=== PATIENT | male | born 1960 | race American Indian/Alaskan Native ===

== ENCOUNTER 2016-11-16 18:50 | Emergency (ER) | payer OTHER ==
[2016-11-16 20:17] LABS: Hematocrit 40.8 % (35.5-45.6); Hemoglobin 13.9 gm/dl (11.8-15.2); Mean Corpuscular HGB Conc 34 % (32-34); Mean Corpuscular Hemoglobin 27 pg (28-32); Mean Corpuscular Volume 80 fl (84-94); Red Blood Count 5.09 M/mm3 (3.65-5.03); Red Cell Distribution Width 14.9 % (13.2-15.2); White Blood Count 6.4 K/mm3 (4.5-11.0)
[2016-11-16 20:22] LABS: Platelet Count 88 K/mm3 (140-440)
[2016-11-16 20:30] LABS: Alanine Aminotransferase 128 units/L (7-56); Albumin 3.2 g/dL (3.9-5); Albumin/Globulin Ratio 1.2 %; Alkaline Phosphatase 343 units/L (35-129); Anion Gap 22 mmol/L; Blood Urea Nitrogen 14 mg/dL (9-20); Calcium 8.1 mg/dL (8.4-10.2); Carbon Dioxide 25 mmol/L (22-30); Chloride 91.1 mmol/L (98-107); Glucose 187 mg/dL (75-100); Lipase 9 units/L (13-60); Potassium 4.1 mmol/L (3.6-5.0); Sodium 134 mmol/L (137-145); Total Protein 5.9 g/dL (6.3-8.2)
[2016-11-16 21:03] LABS: Basophils % (Manual) 0 % (0.0-1.8); Blastocytes % (Manual) 0 %
[2016-11-16 21:07] LABS: Diff Status Complete; Platelet Estimate Consistent w Auto; Target Cells 1+
[2016-11-17 00:04] LABS: Urine Drugs of Abuse Note Disclamer
[2016-11-17 00:17] LABS: Bacteria,Urine 1+ /HPF (Negative); Bilirubin,Urine NEG (Negative); Blood,Urine NEG (Negative); Ketones,Urine NEG (Negative); Leukocyte Esterase,Urine TR (Negative); Mucus,Urine FEW /HPF; Nitrite,Urine POS (Negative)
--- NOTE | 2016-11-17 01:20 | Emergency Department Report ---
HPI - General Chief Complaint: Abdominal Pain Time Seen by Provider: 11/17/16 00:36 - HPI HPI: This is a 56-year-old Afro-Turkish male presents the emergency department with a 2 week history of some upper abdominal pain with some radiation towards his back. He denies any nausea, vomiting but he does have a history of weight loss of about 60 pounds over the past few years despite saying that he is eating regularly. He follows up at [facility] and [place] for primary care and he says that he went there today but was told to come the emergency department for further evaluation. This abdominal pain is a more chronic issue having occurred intermittently over the past 6 months. He denies any constipation, diarrhea, fever. He has not taken anything for symptoms prior to presentation. He does have a history of alcohol abuse but says he has not been drinking much since he "got sick" but he did drink this morning. No recent travel or sick contacts at home. ED Past Medical Hx - Past Medical History Previous Medical History?: Yes Hx Hypertension: Yes Hx Diabetes: Yes - Surgical History Past Surgical History?: No - Social History Smoking Status: Current Every Day Smoker Substance Use Type: Alcohol - Medications Home Medications: Home Medications Medication Instructions Recorded Confirmed Last Taken Type amLODIPine 10 mg DAILY 11/11/15 11/17/16 11/11/15 History glipiZIDE 10 mg PO DAILY 11/11/15 11/17/16 11/11/15 History Ciprofloxacin HCl [Ciprofloxacin 500 mg PO Q12H #14 tab 11/17/16 Unknown Rx TAB] ED Review of Systems ROS: Stated complaint: ABDOMINAL PAIN Other details as noted in HPI Comment: All other systems reviewed and negative Constitutional: denies: chills, fever Eyes: denies: eye pain, eye discharge, vision change ENT: denies: ear pain, throat pain Respiratory: denies: cough, shortness of breath, wheezing Cardiovascular: denies: chest pain, palpitations Gastrointestinal: abdominal pain. denies: diarrhea Genitourinary: denies: dysuria, discharge Musculoskeletal: back pain. denies: arthralgia Skin: denies: rash, lesions Neurological: denies: headache, weakness, paresthesias Physical Exam - Physical Exam Vital Signs: Vital Signs 11/16/16 11/16/16 11/17/16 19:30 19:31 00:55 Temperature 97.7 F 97.9 F Pulse Rate 107 H 107 H 89 Respiratory 20 20 13 Rate Blood Pressure [Left] Blood Pressure 118/92 118/92 [Right] O2 Sat by Pulse 100 100 100 Oximetry 11/17/16 01:09 Temperature 97.9 F Pulse Rate 86 Respiratory 14 Rate Blood Pressure 132/76 [Left] Blood Pressure [Right] O2 Sat by Pulse 99 Oximetry Physical Exam: GENERAL: The patient is well-developed well-nourished. HEENT: Normocephalic. Atraumatic. Extraocular motions are intact. Patient has moist mucous membranes. Pupils equal reactive to light bilaterally. NECK: Supple. Trachea is midline. CHEST/LUNGS: Clear to auscultation. There is no respiratory distress noted. HEART/CARDIOVASCULAR: Regular. There is no tachycardia. There is no gallop rub or murmur. ABDOMEN: Abdomen is soft. There is some mild tenderness to palpation to the upper quadrants of the abdomen. No guarding or rebound tenderness. Patient has normal bowel sounds. There is no abdominal distention. SKIN: Skin is warm and dry. NEURO: The patient is awake, alert, and oriented. The patient is cooperative. The patient has no focal neurologic deficits. The patient has normal speech and gait. MUSCULOSKELETAL: There is no tenderness or deformity. There is no limitation range of motion. There is no evidence of acute injury. ED Course Vital Signs 11/16/16 11/16/16 11/17/16 19:30 19:31 00:55 Temperature 97.7 F 97.9 F Pulse Rate 107 H 107 H 89 Respiratory 20 20 13 Rate Blood Pressure [Left] Blood Pressure 118/92 118/92 [Right] O2 Sat by Pulse 100 100 100 Oximetry 11/17/16 01:09 Temperature 97.9 F Pulse Rate 86 Respiratory 14 Rate Blood Pressure 132/76 [Left] Blood Pressure [Right] O2 Sat by Pulse 99 Oximetry ED Medical Decision Making - Lab Data Result diagrams: 11/16/16 19:50 11/16/16 19:50 - Radiology Data Radiology results: report reviewed, image reviewed interpreted by me: Chest x-ray shows some hyperinflation of the lungs. The images rotated. There is no obvious pneumonia, pleural effusions or pneumothorax. Abdominal x-ray shows some nonspecific nonobstructive bowel gas. Abdominal ultrasound is read as a normal examination. CT of the abdomen and pelvis with IV contrast shows no intestinal or urinary tract obstruction is seen. There are some inflammatory change with thickening of the bowel wall involving the ascending colon as well as a portion of the descending and sigmoid colon. Colitis is possible. Fatty infiltration of the liver. - Medical Decision Making 56-year-old male presents the emergency department with acute on chronic abdominal pain with some radiation towards the back. He has elevation in his LFTs and alkaline phosphatase but also has a history of alcohol abuse. He has a blood alcohol of 0.22 to within the emergency department but by the time I see the patient is not appear clinically intoxicated. He had abdominal x-ray, abdominal ultrasound and eventually a CT of the abdomen. There is sign a fatty liver disease but there is no pancreatitis, cholecystitis, any acute abdominal abnormalities. Patient was given a dose of pain medication and has good relief of his discomfort. I did not feel comfortable sending him home with any narcotic pain medication secondary to his history of consistent alcohol abuse. However he was given a referral for both primary care and gastroenterology. He was encouraged to return to the emergency department with any worsening of symptoms or any acute distress. Vital signs stable throughout his ED course including being afebrile. - Differential Diagnosis hepatitis, cirrhosis, cholecystitis, pancreatitis Critical Care Time: No Critical care attestation.: If time is entered above; I have spent that time in minutes in the direct care of this critically ill patient, excluding procedure time. ED Disposition Clinical Impression: Fatty infiltration of liver, Alcohol abuse, Transaminitis Abdominal pain Qualifiers: Abdominal location: upper abdomen, unspecified Qualified Code(s): R10.10 - Upper abdominal pain, unspecified Hypertension Qualifiers: Hypertension type: essential hypertension Qualified Code(s): I10 - Essential ( primary) hypertension Disposition: DC-01 TO HOME OR SELFCARE Is pt being admited?: No Condition: Stable Instructions: Abuse of Alcohol (ED), Abdominal Pain (ED), Hypertension (ED) Additional Instructions: Please follow-up with your primary care physician in the next few days. I've given your referral for a local director airport, Dr. haney, in order follow -up regarding your fatty infiltration of the liver, abdominal pain and elevated labs. Return to the emergency department with any worsening of her symptoms or any acute distress. Try to stay away from foods that are high in salt and caffeinated products to help with your blood pressure. Keep a blood pressure log. It is recommended to try and avoid any further alcohol consumption as it will worsen the fatty infiltration of your liver. Prescriptions: Ciprofloxacin HCl [Ciprofloxacin TAB] 500 mg PO Q12H #14 tab Referrals: PRIMARY CARE, [Primary Care Provider] - 3-5 Days KATIE HANEY MD [Staff Physician] - 3-5 Days Time of Disposition: 05:46
--- NOTE | 2016-11-17 02:28 | Ultrasound Report ---
FINAL REPORT PROCEDURE: US ABDOMEN COMPLETE TECHNIQUE: Real-time sonography in multiple planes of the abdomen was performed with image documentation. CPT 85346 HISTORY: Abd pain COMPARISON: No prior studies are available for comparison. FINDINGS: Liver: Normal size and echotexture with no evidence of cystic or solid mass lesions. Gallbladder: Fluid filled. No gallstones, wall thickening, pericholecystic fluid, or sonographic Fermin's sign. Intrahepatic bile ducts: Normal caliber . Extrahepatic bile ducts: Normal caliber. Pancreas: Normal as visualized with suboptimal depiction of the pancreatic tail. Aorta: Visualized portions appear normal. IVC: Visualized portions appear normal. RIGHT kidney: Normal echotexture. No focal renal mass, calculus, or hydronephrosis. Length: 12cm. LEFT kidney: Normal echotexture. No focal renal mass, calculus, or hydronephrosis . Length: 9.6cm. Spleen: Spleen is not well visualized. Intraperitoneal fluid: None . Other: None . IMPRESSION: Normal Examination.
--- NOTE | 2016-11-17 04:22 | Cat Scan Report ---
FINAL REPORT PROCEDURE: CT ABDOMEN PELVIS W CON TECHNIQUE: Computerized axial tomography of the abdomen and pelvis was performed after the IV injection of iodinated nonionic contrast. HISTORY: abd pain COMPARISON: 11/12/2015 FINDINGS: Visualized lower thorax: No significant abnormality. Liver: The liver is fatty infiltrated. Spleen: Normal size and attenuation. Gallbladder and biliary system: Normal. Pancreas: Normal. Adrenals: Normal. Kidneys: Normal. GI tract: Stomach is normal. No obstruction. The cecum, and appendix region are normal. There is some bowel wall thickening involving the ascending and transverse colon. Short segment colitis is suspected. There is also minimal thickening of the bowel wall involving the descending and sigmoid colon region. No abscess or free air seen. Lymph nodes and mesentery: Normal. Vasculature: Moderate atherosclerosis of the aorta and branching vessels.. Bladder: Normal. Reproductive organs: Normal. Peritoneum: No free fluid. Musculoskeletal structures: No significant abnormality. Other: None. IMPRESSION: No intestinal or urinary tract obstruction is seen. There is some inflammatory change with thickening of the bowel wall involving the ascending colon as well as a portion of the descending and sigmoid colon. Colitis is possible. Fatty infiltration of the liver.
[2016-11-17] MEDS ORDERED: MORPHINE IV ONE (05:13)
--- NOTE | 2016-11-17 05:59 | XRay Report ---
FINAL REPORT PROCEDURE: XR ABDOMEN 2V TECHNIQUE: Abdominal series, including supine and upright AP views. HISTORY: abd pain COMPARISON: No prior studies are available for comparison. FINDINGS: Bowel gas pattern:Nonobstructive . Masses or calcifications:None . Bony structures:No significant abnormality . Pneumoperitoneum:None . Other:No significant findings . IMPRESSION: No acute abnormality.
[2016-11-17 06:29] VITALS: BP 172/114
--- NOTE | 2016-11-17 14:06 | XRay Report ---
FINAL REPORT PROCEDURE: XRAY CHEST SINGLE VIEW TECHNIQUE: Chest radiograph anteroposterior view. CPT 84401 HISTORY: check pain in association with abd pain @ or around diaphragm COMPARISON: No prior studies are available for comparison. FINDINGS: Heart: Normal. Mediastinum/Vessels: Normal. Lungs/Pleural space: Normal. Bony thorax: No acute osseous abnormality. Life support devices: None. IMPRESSION: No acute cardiopulmonary abnormality.
== END 2016-11-17 06:30 | disposition home or self-care (01) ==
LOC: ED 18:50
DX: K76.0 Fatty (change of) liver, not elsewhere classified (principal); R74.0 Nonspecific elevation of levels of transaminase and lactic acid dehydrogenase [LDH]; R10.10 Upper abdominal pain, unspecified; I10 Essential (primary) hypertension; E11.9 Type 2 diabetes mellitus without complications; F17.200 Nicotine dependence, unspecified, uncomplicated
CPT/HCPCS: 36415; 71010; 74020; 74177; 76700; 80053; 80307; 81001; 83690; 85007; 85025; 96374; 99284; G0480; J2270; Q9967; 80320

== ENCOUNTER 2017-06-12 16:38 | Inpatient (IN) | payer OTHER ==
[2017-06-12] MEDS ORDERED: ASPIRIN PO ONE (20:30)
[2017-06-12 21:05] LABS: Basophils % (Auto) 0.4 % (0.0-1.8); Eosinophils % (Auto) 0.2 % (0.0-4.3); Hemoglobin 11.2 gm/dl (11.8-15.2); Lymphocytes # (Auto) 2.1 K/mm3 (1.2-5.4); Lymphocytes % (Auto) 23.7 % (13.4-35.0); Mean Corpuscular HGB Conc 31 % (32-34); Mean Corpuscular Volume 83 fl (84-94); Monocytes # (Auto) 0.5 K/mm3 (0.0-0.8); Monocytes % (Auto) 6.2 % (0.0-7.3); Red Blood Count 4.36 M/mm3 (3.65-5.03); Red Cell Distribution Width 15.4 % (13.2-15.2)
[2017-06-12 21:08] LABS: BUN/Creatinine Ratio 17; Blood Urea Nitrogen 12 mg/dL (9-20); Hemolysis Index 6
[2017-06-12 21:09] LABS: Mean Corpuscular Hemoglobin 26 pg (28-32); Platelet Count 169 K/mm3 (140-440)
--- NOTE | 2017-06-12 21:35 | XRay Report ---
FINAL REPORT EXAM: XR CHEST ROUTINE 2V HISTORY: possible CHF COMPARISON: None available. FINDINGS:: Frontal and lateral views of the chest obtained. Heart appears to be borderline enlarged. Patchy airspace opacities at the lung bases and small to moderate effusions greater on the right. No pneumothorax. IMPRESSION:: Patchy airspace opacities mid to lower lungs with bilateral pleural effusions greater on the right. Findings could be compatible with patient's history of CHF. Superimposed pneumonia is not excluded.
[2017-06-13] MEDS ORDERED: NITROSTAT SL ONE (01:39)
[2017-06-13] MEDS ORDERED: LASIX IV ONE (01:39)
[2017-06-13] MEDS ORDERED: ASPIRIN ONE (01:55)
--- NOTE | 2017-06-13 02:38 | Emergency Department Report ---
ED Chest Pain HPI - General Chief Complaint: Extremity Injury, Lower Stated Complaint: SWELLING IN LEGS/FEET Time Seen by Provider: 06/13/17 00:23 Source: patient Mode of arrival: Ambulatory Limitations: No Limitations - History of Present Illness Initial Comments: 56-year-old male past medical history hypertension, diabetes presents with complaint of acute onset of lower extremity swelling and dyspnea at rest 4 days. Patient is awake alert and oriented 3 speaking in full sentences wheezing or stridor. States he has some chest discomfort. Patient is fully lucid. Denies any history of DVTs or PEs. Denies pleuritic chest pain. Patient states he is formerly a smoker. No recent surgeries. No recent travel. MD Complaint: chest pain Onset/Timin -: days(s) Onset: during rest Severity scale (0 -10): 0 Improves With: nothing Worsens With: nothing Other Symptoms: cough Aspirin use within the Past 7 Days: (0) No - Related Data On Oral Contraceptives: No Home Medications Medication Instructions Recorded Confirmed Last Taken amLODIPine 10 mg DAILY 11/11/15 06/13/17 11/11/15 Allergies Allergy/AdvReac Type Severity Reaction Status Date / Time No Known Allergies Allergy Verified 11/12/15 06:05 Heart Score - HEART Score History: Moderately suspicious EKG: Non-specific Age: 45-65 Risk factors: 1-2 risk factors Troponin: > 3x normal limit HEART Score: 6 ED Review of Systems ROS: Stated complaint: SWELLING IN LEGS/FEET Other details as noted in HPI Constitutional: denies: chills, fever Eyes: denies: eye pain, eye discharge, vision change ENT: denies: ear pain, throat pain Respiratory: denies: cough, shortness of breath, wheezing Cardiovascular: chest pain. denies: palpitations Endocrine: no symptoms reported Gastrointestinal: denies: abdominal pain, nausea, diarrhea Genitourinary: denies: urgency, dysuria Musculoskeletal: as per HPI (extremity swelling bilaterally). denies: back pain , joint swelling, arthralgia Skin: denies: rash, lesions Neurological: denies: headache, weakness, paresthesias Psychiatric: denies: anxiety, depression Hematological/Lymphatic: denies: easy bleeding, easy bruising ED Past Medical Hx - Past Medical History Hx Hypertension: Yes Hx Diabetes: Yes - Social History Smoking Status: Current Every Day Smoker Substance Use Type: Alcohol - Medications Home Medications: Home Medications Medication Instructions Recorded Confirmed Last Taken Type amLODIPine 10 mg DAILY 11/11/15 06/13/17 11/11/15 History ED Physical Exam - General Limitations: No Limitations General appearance: alert, in no apparent distress - Head Head exam: Present: atraumatic, normocephalic - Eye Eye exam: Present: normal appearance, PERRL, EOMI - ENT ENT exam: Present: mucous membranes moist - Neck Neck exam: Present: normal inspection - Respiratory Respiratory exam: Present: normal lung sounds bilaterally, decreased breath sounds (decreased breath sounds bilaterally on auscultation). Absent: respiratory distress - Cardiovascular Cardiovascular Exam: Present: regular rate, normal rhythm. Absent: systolic murmur, diastolic murmur, rubs, gallop - GI/Abdominal GI/Abdominal exam: Present: soft, normal bowel sounds - Rectal Rectal exam: Present: deferred - Extremities Exam Extremities exam: Present: normal inspection, pedal edema (bilateral lower extremity edema pitting +2+3 bilaterally.) - Back Exam Back exam: Present: normal inspection - Neurological Exam Neurological exam: Present: alert, oriented X3, CN II-XII intact, normal gait - Psychiatric Psychiatric exam: Present: normal affect, normal mood - Skin Skin exam: Present: warm, dry, intact, normal color. Absent: rash ED Course Vital Signs 06/12/17 06/13/17 06/13/17 16:42 01:48 03:00 Temperature 97.7 F 97.8 F Pulse Rate 109 H 107 H Respiratory 16 22 22 Rate Blood Pressure 126/93 Blood Pressure 134/101 [Left] O2 Sat by Pulse 93 86 90 Oximetry 06/13/17 06/13/17 06/13/17 03:27 03:52 05:31 Temperature Pulse Rate 100 H Respiratory 20 20 Rate Blood Pressure Blood Pressure 120/74 [Left] O2 Sat by Pulse 99 97 Oximetry 06/13/17 05:34 Temperature Pulse Rate 100 H Respiratory 20 Rate Blood Pressure Blood Pressure 122/73 [Left] O2 Sat by Pulse 99 Oximetry DES score - Des Score Age > 65: (0) No Aspirin use within the Past 7 Days: (0) No 3 or more CAD Risk Factors: (0) No 2 or more Angina events in past 24 hrs: (1) Yes Known CAD with more than 50% Stenosis: (0) No Elevated Cardiac Markers: (0) No ST Deviation Greater than 0.5mm: (0) No DES Score: 1 ED Medical Decision Making - Lab Data Result diagrams: 06/12/17 20:37 06/13/17 01:58 - Medical Decision Making A/P: Acute onset new onset CHF, hyperglycemia and mild hypoxia 1-discussed with Dr. Castro 2-IV Lasix bolus, insulin bolus, trial of BiPAP. Patient O2 sat mid 80s on nasal cannula 3-EKG nonspecific changes, LVH 4- is discussed with Dr. Maldonado hospitalist for admission for new onset CHF. 5- I re-calculated anion gap with Dr. Howell, anion gap 15. Will refrain from insulin drip at this time Critical care attestation.: If time is entered above; I have spent that time in minutes in the direct care of this critically ill patient, excluding procedure time. ED Disposition Clinical Impression: New onset of congestive heart failure, Hyperglycemia, Hypoxia Disposition: DC-01 TO HOME OR SELFCARE Is pt being admited?: No Does the pt Need Aspirin: No Condition: Stable
[2017-06-13] MEDS ORDERED: MILK OF MAGNESIA PO PRN (04:26)
[2017-06-13] MEDS ORDERED: ZOFRAN IV PRN (04:26)
[2017-06-13] MEDS ORDERED: DULCOLAX PR PRN (04:26)
[2017-06-13] MEDS ORDERED: TYLENOL PO PRN (04:26)
[2017-06-13] MEDS ORDERED: D50W (25GM) Syringe IV PRN (04:26)
--- NOTE | 2017-06-13 04:49 | History and Physical Report ---
History of Present Illness Date of examination: 06/13/17 History of present illness: 56-year-old man with a history of hypertension, diabetes, alcohol abuse, pancreatitis comes emergency room with complaints of lower extremity edema, transfer, dyspnea on exertion, PND and orthopnea for 4 days. Also complaining of chest pain in the left substernal area which she described as a sharp pain, intermittent in nature, unable to say how long it lasts 4, intensity 5/10, no radiation, he cannot identify exacerbating or relieving factors. He denies nausea vomiting, diaphoresis or palpitation. He stated that he recently quit alcohol use Review Of Systems: Constitutional: no weight loss Ears, eyes, nose, mouth and throat: no nasal congestion, no nasal discharge, no sinus pressure, blurry vision, diplopia Neck: No neck pain or rigidity. Cardiovascular: No palpitations Respiratory: No cough Gastrointestinal: No abdominal pain, hematochezia Genitourinary : no dysuria, frequency , hematuria Musculoskeletal: no muscle ache Integumentary: no rash, no pruritis Neurological: no parathesias, focal weakness Endocrine: no cold or heat intolerance, no polyuria or polydipsia Hematologic/Lymphatic: no easy bruising, no easy bleeding, no gland swelling Allergic/Immunologic: no urticaria, no angioedema. PAST MEDICAL HISTORY:hypertension, diabetes, alcohol abuse, pancreatitis PAST SURGICAL HISTORY: None FAMILY HISTORY: Hypertension SOCIAL HISTORY: Alcohol abuse54 years, Quit 1 month ago, stated he also quit cigarettes but does smoke a cigar every now and then, no drugs Medications and Allergies Allergies Allergy/AdvReac Type Severity Reaction Status Date / Time No Known Allergies Allergy Verified 11/12/15 06:05 Home Medications Medication Instructions Recorded Confirmed Last Taken Type amLODIPine 10 mg DAILY 11/11/15 06/13/17 11/11/15 History Active Meds: Active Medications Acetaminophen (Tylenol) 650 mg PO Q4H PRN PRN Reason: Pain MILD(1-3)/Fever >100.5/GONSALES Aspirin (Baby Aspirin) 81 mg PO QDAY CHRISTIAN Bisacodyl (Dulcolax) 10 mg WV QDAY PRN PRN Reason: Constipation unrelieved by MOM Carvedilol (Coreg) 3.125 mg PO BID CHRISTIAN Dextrose (D50w (25gm) Syringe) 50 ml IV PRN PRN PRN Reason: Hypoglycemia Enoxaparin Sodium (Lovenox) 40 mg SUB-Q QDAY CHRISTIAN Furosemide (Lasix) 20 mg IV QDAY CHRISTIAN Insulin Aspart (Novolog) 0 units SUB-Q ACHS CHRISTIAN PRN Reason: Protocol Lisinopril (Zestril) 2.5 mg PO QDAY CHRISTIAN Magnesium Hydroxide (Milk Of Magnesia) 30 ml PO Q4H PRN PRN Reason: Constipation Ondansetron HCl (Zofran) 4 mg IV Q8H PRN PRN Reason: N/V unrelieved by Reglan Oxycodone/Acetaminophen (Percocet 5/325) 1 tab PO Q6H PRN PRN Reason: Pain, Moderate (4-6) Exam - Physical Exam Narrative exam: Gen. appearance: Patient lying in bed in no acute distress HEENT: Normocephalic/atraumatic, pupils equal round reactive to light, extra occular movement intact, no scleral icterus, no JVD or thyromegaly or nodule, neck is supple, mucous membrane moist, no erythema or exudate Heart: S1-S2, regular rate and rhythm Lungs: Crackles bilateral breathing comfortable Abdomen: Positive bowel sounds, nontender, nondistended, no organomegaly Extremities: +edema,no cyanosis, clubbing Neuro:: Oriented 3 , cranial nerves II-12 intact, speech, motor intact Skin: No rash, nodules, warm dry - Constitutional Vitals: Temp Pulse Resp BP Pulse Ox 97.8 F 100 H 20 120/74 97 06/13/17 01:48 06/13/17 03:27 06/13/17 03:27 06/13/17 03:27 06/13/17 03:52 Results - Labs CBC & Chem 7: 06/12/17 20:37 06/13/17 01:58 Labs: Abnormal lab results 06/12/17 06/12/17 06/13/17 Range/Units 20:37 20:37 01:58 Hgb 11.2 L (11.8-15.2) gm/dl MCV 83 L (84-94) fl MCH 26 L (28-32) pg MCHC 31 L (32-34) % RDW 15.4 H (13.2-15.2) % POC ABG pH (7.35-7.45) POC ABG pO2 (80-105) Sodium 131 L (137-145) mmol/L Chloride 91.9 L (98-107) mmol/L Creatinine 0.7 L (0.8-1.5) mg/dL Glucose 609 H* 609 H* (75-100) mg/dL NT-Pro-B Natriuret Pep 3359 H (0-900) pg/mL 06/13/17 Range/Units 02:58 Hgb (11.8-15.2) gm/dl MCV (84-94) fl MCH (28-32) pg MCHC (32-34) % RDW (13.2-15.2) % POC ABG pH 7.461 H (7.35-7.45) POC ABG pO2 51 L (80-105) Sodium (137-145) mmol/L Chloride (98-107) mmol/L Creatinine (0.8-1.5) mg/dL Glucose (75-100) mg/dL NT-Pro-B Natriuret Pep (0-900) pg/mL - Imaging and Cardiology EKG: image reviewed Chest x-ray: image reviewed Assessment and Plan Assessment New-onset CHF, probably systolic dysfunction Chest faint Diabetes uncontrolled Hypertension Chronic pancreatitis Plan Admit to medicine Start IV Lasix, beta kali, LINDA inhibitor, aspirin Check cardiac enzymes, echo, consult cardiology Monitor I's and O's, daily weights Stress tests once CHF has improved Check fingersticks and initiate insulin sliding scale DVT prophylaxis
[2017-06-13] MEDS: PERCOCET 5/325 PO PRN (05:31)
[2017-06-13 05:55] LABS: Creatine Kinase MB 1.8 ng/mL (0.0-4.0)
[2017-06-13] MEDS: NOVOLOG SUB-Q SCH ×4 (09:10→22:05)
[2017-06-13] MEDS ORDERED: LASIX IV SCH (10:00)
[2017-06-13] MEDS: COREG PO SCH (11:40)
[2017-06-13] MEDS: BABY ASPIRIN PO SCH (11:40)
[2017-06-13] MEDS: LOVENOX SUB-Q SCH (11:41)
[2017-06-13] MEDS: ZESTRIL PO SCH (11:41)
[2017-06-13 12:10] LABS: Creatine Kinase MB 1.5 ng/mL (0.0-4.0)
--- NOTE | 2017-06-13 15:18 | Consultation ---
History of Present Illness Consult date: 06/13/17 Requesting physician: ANGE DURANT Consult reason: chest pain, congestive heart failure History of present illness: The pt is a 56-year-old male with a past medical history significant for hypertension, DM, pancreatitis, ETOH abuse. He is previously unknown to our practice. He presented with complaints of progressively worsening SOB, OROZCO, BLE edema and orthopnea for 4 days prior to arrival. He denies any chest pain, palpitations, n/v, diaphoresis, dizziness or syncope. He denies any prior cardiac issues. Past History Past Medical History: diabetes, hypertension Social history: alcohol abuse Medications and Allergies Allergies Allergy/AdvReac Type Severity Reaction Status Date / Time No Known Allergies Allergy Verified 11/12/15 06:05 Home Medications Medication Instructions Recorded Confirmed Last Taken Type amLODIPine 10 mg DAILY 11/11/15 06/13/17 11/11/15 History Active Meds: Active Medications Acetaminophen (Tylenol) 650 mg PO Q4H PRN PRN Reason: Pain MILD(1-3)/Fever >100.5/GONSALES Aspirin (Baby Aspirin) 81 mg PO QDAY [facility] Last Admin: 06/13/17 11:40 Dose: 81 mg Bisacodyl (Dulcolax) 10 mg CO QDAY PRN PRN Reason: Constipation unrelieved by MOM Carvedilol (Coreg) 3.125 mg PO BID [facility] Last Admin: 06/13/17 11:40 Dose: Not Given Dextrose (D50w (25gm) Syringe) 50 ml IV PRN PRN PRN Reason: Hypoglycemia Enoxaparin Sodium (Lovenox) 40 mg SUB-Q QDAY [facility] Last Admin: 06/13/17 11:41 Dose: 40 mg Furosemide (Lasix) 20 mg IV QDAY [facility] Last Admin: 06/13/17 11:41 Dose: 20 mg Insulin Aspart (Novolog) 0 units SUB-Q ACHS [facility] PRN Reason: Protocol Last Admin: 06/13/17 12:54 Dose: 6 units Insulin Detemir (Levemir) 20 units SUB-Q QAMDIAB [facility] Lisinopril (Zestril) 2.5 mg PO QDAY [facility] Last Admin: 06/13/17 11:41 Dose: Not Given Magnesium Hydroxide (Milk Of Magnesia) 30 ml PO Q4H PRN PRN Reason: Constipation Ondansetron HCl (Zofran) 4 mg IV Q8H PRN PRN Reason: N/V unrelieved by Reglan Oxycodone/Acetaminophen (Percocet 5/325) 1 tab PO Q6H PRN PRN Reason: Pain, Moderate (4-6) Last Admin: 06/13/17 05:31 Dose: 1 tab Review of Systems Constitutional: no fever, no chills, no sweats Ears, nose, mouth and throat: no ear pain, no nose pain, no sinus pressure, no sinus pain Cardiovascular: orthopnea, edema, shortness of breath, dyspnea on exertion, paroxysmal nocturnal dyspnea, high blood pressure, leg edema, decreased exercise tolerance, no chest pain, no palpitations, no rapid/irregular heart beat, no syncope, no lightheadedness Respiratory: shortness of breath, dyspnea on exertion, no cough, no congestion, no wheezing, no pain on inspiration Gastrointestinal: no abdominal pain, no nausea, no vomiting, no diarrhea, no constipation, no change in bowel habits Genitourinary Male: no dysuria, no hematuria, no flank pain, no discharge, no urinary frequency, no urinary hesitancy Musculoskeletal: no neck stiffness, no neck pain, no shooting arm pain, no arm numbness/tingling, no low back pain, no shooting leg pain, no leg numbness/ tingling, no redness of joints Integumentary: no rash, no pruritis, no redness, no sores, no wounds Neurological: no head injury, no paralysis, no weakness, no parathesias, no numbness, no tingling, no seizures, no syncope Psychiatric: no anxiety Endocrine: no cold intolerance, no heat intolerance Hematologic/Lymphatic: no easy bruising, no easy bleeding, no lymphadenopathy Allergic/Immunologic: no urticaria, no wheezing, no persistent infections Physical Examination Vital Signs Temp Pulse Resp BP Pulse Ox 97.7 F 109 H 16 126/93 93 06/12/17 16:42 06/12/17 16:42 06/12/17 16:42 06/12/17 16:42 06/12/17 16:42 General appearance: no acute distress HEENT: Positive: PERRL, Normocephaly, Mucus Membranes Moist Neck: Positive: neck supple, trachea midline Cardiac: Positive: Reg Rate and Rhythm, S1/S2, Systolic Murmur Lungs: Positive: Rales (bibasilar) Neuro: Positive: Grossly Intact Abdomen: Positive: Soft. Negative: Tender Skin: Positive: Clear. Negative: Rash, Wound Musculoskeletal: No Pain, Normal Range of Motion Extremities: Present: +3 Edema (BLE) Results 06/12/17 20:37 06/13/17 01:58 Cardiac Enzymes 06/13/17 06/13/17 Range/Units 05:17 11:19 CK-MB (CK-2) 1.8 1.5 (0.0-4.0) ng/mL CBC 06/12/17 Range/Units 20:37 WBC 8.7 (4.5-11.0) K/mm3 RBC 4.36 (3.65-5.03) M/mm3 Hgb 11.2 L (11.8-15.2) gm/dl Hct 36.0 (35.5-45.6) % Plt Count 169 (140-440) K/mm3 Lymph # 2.1 (1.2-5.4) K/mm3 [place] # 0.5 (0.0-0.8) K/mm3 Eos # 0.0 (0.0-0.4) K/mm3 Baso # 0.0 (0.0-0.1) K/mm3 Comprehensive Metabolic Panel 06/12/17 06/13/17 Range/Units 20:37 01:58 Sodium 131 L (137-145) mmol/L Potassium 4.4 (3.6-5.0) mmol/L Chloride 91.9 L (98-107) mmol/L Carbon Dioxide 24 (22-30) mmol/L BUN 12 (9-20) mg/dL Creatinine 0.7 L (0.8-1.5) mg/dL Glucose 609 H* 609 H* (75-100) mg/dL Calcium 9.0 (8.4-10.2) mg/dL - Imaging and Cardiology Echo: report reviewed EKG: report reviewed, image reviewed EKG interpretations - Telemetry EKG Rhythm: Sinus Rhythm - EKG Sinus rhythms and dysrhythmias: sinus rhythm Assessment and Plan Assessment: Acute combined systolic and diastolic heart failure CMP ? PNA HTN Uncontrolled DM Severe MR / mild to mod TR H/o pancreatitis H/o ETOH abuse Plan: Echo reviewed - EF 25-30%, grade 3 LV diastolic dysfunction, LA dilated, mild AR , severe MR, mild to mod TR, RVSP 40mmHg, large bilateral pleural effusions. Agree with low dose coreg and lisinopril. Increase lasix to 40mg IV daily. Repeat BMP in AM. Obtain lipid panel in AM. Plan for ischemic evaluation ([facility]) to r/o ischemic CMP once medically stabilized - possibly Tuesday. Assessment and plan reviewed with pt at bedside. The patient has been seen in conjunction with Dr. Rob who agrees with the assessment and plan of care.
--- NOTE | 2017-06-13 16:09 | Event Note ---
Date: 06/13/17 pt seen and examined 56-year-old man with a history of hypertension, diabetes, alcohol abuse, pancreatitis comes emergency room with complaints of lower extremity edema, dyspnea on exertion, PND and orthopnea for 4 days. Also noted to have BG of 609. Will cont current Mx and plan as dictated in H and P, Will monitor BG, started on long acting insulin.
[2017-06-14] MEDS: COREG PO SCH ×3 (00:27→22:54)
[2017-06-14] MEDS: LEVEMIR SUB-Q SCH ×2 (00:28→10:00)
[2017-06-14] MEDS: PERCOCET 5/325 PO PRN (02:56)
[2017-06-14 07:54] LABS: Basophils % (Auto) 0.4 % (0.0-1.8); Eosinophils % (Auto) 0.4 % (0.0-4.3); Hemoglobin 9.5 gm/dl (11.8-15.2); Lymphocytes # (Auto) 2.2 K/mm3 (1.2-5.4); Lymphocytes % (Auto) 30.9 % (13.4-35.0); Mean Corpuscular HGB Conc 33 % (32-34); Mean Corpuscular Hemoglobin 26 pg (28-32); Mean Corpuscular Volume 80 fl (84-94); Monocytes # (Auto) 0.5 K/mm3 (0.0-0.8); Monocytes % (Auto) 6.7 % (0.0-7.3); Platelet Count 132 K/mm3 (140-440); Red Cell Distribution Width 14.6 % (13.2-15.2)
[2017-06-14 07:58] LABS: Hematocrit 28.8 % (35.5-45.6)
[2017-06-14] MEDS: NOVOLOG SUB-Q SCH ×3 (08:15→22:53)
[2017-06-14 08:19] LABS: BUN/Creatinine Ratio 26; Blood Urea Nitrogen 13 mg/dL (9-20); Calcium 8.1 mg/dL (8.4-10.2); Chol/HDL Ratio 1.32 %; HDL Cholesterol 93 mg/dL (40-59); Hemolysis Index 3; LDL Cholesterol,Direct 19 mg/dL (50-130)
[2017-06-14] MEDS ORDERED: K-DUR PO ONE (10:00)
--- NOTE | 2017-06-14 11:37 | Progress Note ---
Assessment and Plan Assessment: Acute combined systolic and diastolic heart failure CMP ? PNA HTN Uncontrolled DM Severe MR / mild to mod TR Hypokalemia H/o pancreatitis H/o ETOH abuse Plan: Cont present cardiac regimen. Replete K+. Plan for lexiscan MPI stress test in AM. NPO after MN. Assessment and plan reviewed with pt at bedside. The patient has been seen in conjunction with Dr. Rob who agrees with the assessment and plan of care. Subjective Date of service: 06/14/17 Principal diagnosis: HF Interval history: pt resting comfortably in bed, states he is feeling better, BLE edema nearly resolved. Objective Last Vital Signs Temp 98.0 F 06/14/17 09:24 Pulse 87 06/14/17 09:24 Resp 18 06/14/17 09:24 BP 116/85 06/14/17 09:24 Pulse Ox 95 06/14/17 09:24 - Physical Examination HEENT: Positive: PERRL, Normocephaly, Mucus Membranes Moist Neck: Positive: neck supple, trachea midline Cardiac: Positive: Reg Rate and Rhythm, S1/S2 Lungs: Positive: Decreased Breath Sounds Neuro: Positive: Grossly Intact Abdomen: Positive: Soft. Negative: Tender Skin: Positive: Clear. Negative: Rash, Wound Musculoskeletal: No Pain, Normal Range of Motion Extremities: Present: edema (trace BLE) - Labs and Meds Cardiac Enzymes 06/13/17 Range/Units 11:19 CK-MB (CK-2) 1.5 (0.0-4.0) ng/mL Lipids 06/14/17 Range/Units 06:13 Triglycerides 57 (2-149) mg/dL Cholesterol 123 (50-199) mg/dL HDL Cholesterol 93 H (40-59) mg/dL Cholesterol/HDL Ratio 1.32 % CBC 06/14/17 Range/Units 06:13 WBC 7.2 (4.5-11.0) K/mm3 RBC 3.60 L (3.65-5.03) M/mm3 Hgb 9.5 L (11.8-15.2) gm/dl Hct 28.8 L D (35.5-45.6) % Plt Count 132 L (140-440) K/mm3 Lymph # 2.2 (1.2-5.4) K/mm3 [place] # 0.5 (0.0-0.8) K/mm3 Eos # 0.0 (0.0-0.4) K/mm3 Baso # 0.0 (0.0-0.1) K/mm3 Comprehensive Metabolic Panel 06/14/17 Range/Units 06:13 Sodium 135 L (137-145) mmol/L Potassium 3.1 L D (3.6-5.0) mmol/L Chloride 95.1 L (98-107) mmol/L Carbon Dioxide 27 (22-30) mmol/L BUN 13 (9-20) mg/dL Creatinine 0.5 L (0.8-1.5) mg/dL Glucose 157 H (75-100) mg/dL Calcium 8.1 L (8.4-10.2) mg/dL - Imaging and Cardiology EKG: report reviewed, image reviewed Echo: report reviewed - EKG Sinus rhythms and dysrhythmias: sinus rhythm
[2017-06-14] MEDS: LOVENOX SUB-Q SCH (11:56)
[2017-06-14] MEDS: ZESTRIL PO SCH (11:56)
[2017-06-14] MEDS: BABY ASPIRIN PO SCH (11:59)
[2017-06-14] MEDS: LASIX IV SCH (12:00)
[2017-06-14] MEDS ORDERED: Fluarix Quad 2017-2018(36 MOS+ IM ONE (12:00)
--- NOTE | 2017-06-14 21:33 | Progress Note ---
Assessment and Plan Assessment and plan: Patient is a 56 yo man with h/o dm, htm, alcohol abuse and pancreatitis who presented with sob and leg edema. Acute combined systolic and diastolic heart failure: treat with iv lasix Hypokalemia: replete and recheck am CMP: Cardiology is following, stress test in am ? PNA < CHF HTN: low salt diet. Uncontrolled DM: add ssi, ada Severe MR / mild to mod TR H/o pancreatitis H/o ETOH abuse: counseling done Plan for lexiscan MPI stress test in AM. NPO after MN. History Interval history: Pt seen and examined, follow up for sob and leg swelling. He denies cp, fever, abd pains Hospitalist Physical - Constitutional Vitals: Temp Pulse Resp BP Pulse Ox 98.6 F 104 H 18 131/96 98 06/14/17 20:36 06/14/17 20:36 06/14/17 20:36 06/14/17 20:36 06/14/17 20:36 General appearance: Present: no acute distress - EENT Eyes: Present: PERRL, EOM intact ENT: hearing intact, clear oral mucosa, dentition normal - Neck Neck: Present: supple, normal ROM - Respiratory Respiratory effort: normal Respiratory: bilateral: diminished, rales - Cardiovascular Rhythm: regular Heart Sounds: Present: S1 & S2 - Extremities Extremity abnormal: edema Peripheral Pulses: within normal limits - Abdominal General gastrointestinal: soft, tender, normal bowel sounds Localized gastrointestinal: tender: epigastric periumbilical - Psychiatric Psychiatric: appropriate mood/affect - Neurologic Neurologic: CNII-XII intact, moves all extremities - Allied Health Allied health notes reviewed: nursing Results - Labs CBC & Chem 7: 06/14/17 06:13 06/14/17 06:13 Labs: Laboratory Last Values WBC 7.2 K/mm3 (4.5-11.0) 06/14/17 06:13 RBC 3.60 M/mm3 (3.65-5.03) L 06/14/17 06:13 Hgb 9.5 gm/dl (11.8-15.2) L 06/14/17 06:13 Hct 28.8 % (35.5-45.6) L D 06/14/17 06:13 MCV 80 fl (84-94) L 06/14/17 06:13 MCH 26 pg (28-32) L 06/14/17 06:13 MCHC 33 % (32-34) 06/14/17 06:13 RDW 14.6 % (13.2-15.2) 06/14/17 06:13 Plt Count 132 K/mm3 (140-440) L 06/14/17 06:13 Lymph % (Auto) 30.9 % (13.4-35.0) 06/14/17 06:13 [place] % (Auto) 6.7 % (0.0-7.3) 06/14/17 06:13 Eos % (Auto) 0.4 % (0.0-4.3) 06/14/17 06:13 Baso % (Auto) 0.4 % (0.0-1.8) 06/14/17 06:13 Lymph # 2.2 K/mm3 (1.2-5.4) 06/14/17 06:13 [place] # 0.5 K/mm3 (0.0-0.8) 06/14/17 06:13 Eos # 0.0 K/mm3 (0.0-0.4) 06/14/17 06:13 Baso # 0.0 K/mm3 (0.0-0.1) 06/14/17 06:13 Seg Neutrophils % 61.6 % (40.0-70.0) 06/14/17 06:13 Seg Neutrophils # 4.4 K/mm3 (1.8-7.7) 06/14/17 06:13 POC ABG pH 7.461 (7.35-7.45) H 06/13/17 02:58 POC ABG pCO2 38.0 (35-45) 06/13/17 02:58 POC ABG pO2 51 (80-105) L 06/13/17 02:58 POC ABG HCO3 27.1 06/13/17 02:58 POC ABG Total CO2 28 06/13/17 02:58 POC ABG O2 Sat 88 06/13/17 02:58 POC ABG Base Excess 3 06/13/17 02:58 FiO2 50 % 06/13/17 02:58 Sodium 135 mmol/L (137-145) L 06/14/17 06:13 Potassium 3.1 mmol/L (3.6-5.0) L D 06/14/17 06:13 Chloride 95.1 mmol/L (98-107) L 06/14/17 06:13 Carbon Dioxide 27 mmol/L (22-30) 06/14/17 06:13 Anion Gap 16 mmol/L 06/14/17 06:13 BUN 13 mg/dL (9-20) 06/14/17 06:13 Creatinine 0.5 mg/dL (0.8-1.5) L 06/14/17 06:13 Estimated GFR > 60 ml/min 06/14/17 06:13 BUN/Creatinine Ratio 26 % 06/14/17 06:13 Glucose 157 mg/dL (75-100) H 06/14/17 06:13 POC Glucose 265 (70-105) H 06/14/17 12:19 Lactic Acid 1.70 mmol/L (0.7-2.0) 06/13/17 01:58 Calcium 8.1 mg/dL (8.4-10.2) L 06/14/17 06:13 Total Creatine Kinase 41 units/L (55-170) L 06/13/17 11:19 CK-MB (CK-2) 1.5 ng/mL (0.0-4.0) 06/13/17 11:19 CK-MB (CK-2) Rel Index 3.6 (0-4) 06/13/17 11:19 Troponin T < 0.010 ng/mL (0.00-0.029) 06/13/17 11:19 NT-Pro-B Natriuret Pep 3359 pg/mL (0-900) H 06/12/17 20:37 Triglycerides 57 mg/dL (2-149) 06/14/17 06:13 Cholesterol 123 mg/dL (50-199) 06/14/17 06:13 LDL Cholesterol Direct 19 mg/dL (50-130) L 06/14/17 06:13 HDL Cholesterol 93 mg/dL (40-59) H 06/14/17 06:13 Cholesterol/HDL Ratio 1.32 % 06/14/17 06:13
[2017-06-15] MEDS: PERCOCET 5/325 PO PRN (02:09)
[2017-06-15 06:58] LABS: BUN/Creatinine Ratio 23; Blood Urea Nitrogen 9 mg/dL (9-20); Calcium 7.9 mg/dL (8.4-10.2); Hemolysis Index 3
[2017-06-15] MEDS: NOVOLOG SUB-Q SCH ×5 (08:21→22:33)
[2017-06-15] MEDS: LEVEMIR SUB-Q SCH (08:22)
[2017-06-15] MEDS ORDERED: LEXISCAN IV ONE (08:52)
[2017-06-15] MEDS ORDERED: K-DUR PO NR (09:56)
[2017-06-15] MEDS: LASIX IV SCH (10:34)
[2017-06-15] MEDS: ZESTRIL PO SCH (10:34)
[2017-06-15] MEDS: BABY ASPIRIN PO SCH (10:35)
[2017-06-15] MEDS: COREG PO SCH ×2 (10:36→22:01)
[2017-06-15] MEDS: LOVENOX SUB-Q SCH (10:36)
--- NOTE | 2017-06-15 11:17 | Progress Note ---
Assessment and Plan Assessment: Acute combined systolic and diastolic heart failure CMP ? PNA HTN Uncontrolled DM Severe MR / mild to mod TR Hypokalemia H/o pancreatitis H/o ETOH abuse Plan: S/p lexiscan MPI stress test this AM which was negative for ischemia, EF 27%. Currently stable cardiac status. Convert IV lasix to PO, 40mg daily. Cont all other present cardiac management. Wean O2 as tolerated. Pt may discharge home from cardiology standpoint. Follow up in our [place] office with Dr. Rob on 06/20/2017 @ 11:30AM. Assessment and plan reviewed with pt at bedside. The patient has been seen in conjunction with Dr. Rob who agrees with the assessment and plan of care. Subjective Date of service: 06/15/17 Principal diagnosis: HF Interval history: pt for stress test this AM. no current complaints. Objective Last Vital Signs Temp 98.7 F 06/15/17 07:13 Pulse 99 H 06/15/17 10:36 Resp 18 06/15/17 05:22 BP 131/91 06/15/17 10:36 Pulse Ox 99 06/15/17 08:00 - Physical Examination HEENT: Positive: PERRL, Normocephaly, Mucus Membranes Moist Neck: Positive: neck supple, trachea midline Cardiac: Positive: Reg Rate and Rhythm, S1/S2 Lungs: Positive: Decreased Breath Sounds Neuro: Positive: Grossly Intact Abdomen: Positive: Soft. Negative: Tender Skin: Positive: Clear. Negative: Rash, Wound Musculoskeletal: No Pain, Normal Range of Motion Extremities: Present: edema (trace BLE) - Labs and Meds Comprehensive Metabolic Panel 06/15/17 Range/Units 06:12 Sodium 135 L (137-145) mmol/L Potassium 3.3 L (3.6-5.0) mmol/L Chloride 96.5 L (98-107) mmol/L Carbon Dioxide 27 (22-30) mmol/L BUN 9 (9-20) mg/dL Creatinine 0.4 L (0.8-1.5) mg/dL Glucose 102 H (75-100) mg/dL Calcium 7.9 L (8.4-10.2) mg/dL - Imaging and Cardiology EKG: report reviewed, image reviewed Echo: report reviewed - EKG Sinus rhythms and dysrhythmias: sinus rhythm
--- NOTE | 2017-06-15 18:31 | Progress Note ---
Assessment and Plan Assessment and plan: Patient is a 56 yo man with h/o dm, htm, alcohol abuse and pancreatitis who presented with sob and leg edema. Acute combined systolic and diastolic heart failure: treated with iv lasix Hypokalemia: replete and recheck am CMP: Cardiology is following, stress test negative ? PNA < CHF HTN: low salt diet. Uncontrolled DM: add ssi, ada Severe MR / mild to mod TR H/o pancreatitis H/o ETOH abuse: counseling done 06/15/17: Still on high flow O2, will try to wean, consulted Pulmonology. History Interval history: Pt seen and examined, follow up for sob and leg swelling. He denies cp, fever, abd pains Hospitalist Physical - Physical exam Narrative exam: GEN: Thin frail BMI 18.6 NAD, AWAKE, ALERT, ORIENTATED 3 HEENT: NCAT, EOMI, PERRL, OP Clear NECK: supple, no adenopathy, no thyromegaly, no JVD CVS/HEART: rrr, NORMAL S1S2, pulses present bilaterally CHEST/LUNGS: Diminished bilaterally , Symmetrical chest expansion, good air entry bilaterally GI/Abdomen: soft, NTND, good bowel sounds, no guarding or rebound /Bladder: no suprapubic tenderness, no CVA or paraspinal tenderness EXT/Skin: Positive leg edema MSK: FROM x 4 Neuro: CN 2-12 grossly intact, no new focal deficits Psych: calm - Constitutional Vitals: Temp Pulse Resp BP Pulse Ox 97.9 F 100 H 16 129/93 89 06/15/17 15:47 06/15/17 15:47 06/15/17 15:47 06/15/17 15:47 06/15/17 15:47 General appearance: Present: no acute distress Results - Labs CBC & Chem 7: 06/14/17 06:13 06/15/17 06:12 Labs: Laboratory Last Values WBC 7.2 K/mm3 (4.5-11.0) 06/14/17 06:13 RBC 3.60 M/mm3 (3.65-5.03) L 06/14/17 06:13 Hgb 9.5 gm/dl (11.8-15.2) L 06/14/17 06:13 Hct 28.8 % (35.5-45.6) L D 06/14/17 06:13 MCV 80 fl (84-94) L 06/14/17 06:13 MCH 26 pg (28-32) L 06/14/17 06:13 MCHC 33 % (32-34) 06/14/17 06:13 RDW 14.6 % (13.2-15.2) 06/14/17 06:13 Plt Count 132 K/mm3 (140-440) L 06/14/17 06:13 Lymph % (Auto) 30.9 % (13.4-35.0) 06/14/17 06:13 [place] % (Auto) 6.7 % (0.0-7.3) 06/14/17 06:13 Eos % (Auto) 0.4 % (0.0-4.3) 06/14/17 06:13 Baso % (Auto) 0.4 % (0.0-1.8) 06/14/17 06:13 Lymph # 2.2 K/mm3 (1.2-5.4) 06/14/17 06:13 [place] # 0.5 K/mm3 (0.0-0.8) 06/14/17 06:13 Eos # 0.0 K/mm3 (0.0-0.4) 06/14/17 06:13 Baso # 0.0 K/mm3 (0.0-0.1) 06/14/17 06:13 Seg Neutrophils % 61.6 % (40.0-70.0) 06/14/17 06:13 Seg Neutrophils # 4.4 K/mm3 (1.8-7.7) 06/14/17 06:13 POC ABG pH 7.461 (7.35-7.45) H 06/13/17 02:58 POC ABG pCO2 38.0 (35-45) 06/13/17 02:58 POC ABG pO2 51 (80-105) L 06/13/17 02:58 POC ABG HCO3 27.1 06/13/17 02:58 POC ABG Total CO2 28 06/13/17 02:58 POC ABG O2 Sat 88 06/13/17 02:58 POC ABG Base Excess 3 06/13/17 02:58 FiO2 50 % 06/13/17 02:58 Sodium 135 mmol/L (137-145) L 06/15/17 06:12 Potassium 3.3 mmol/L (3.6-5.0) L 06/15/17 06:12 Chloride 96.5 mmol/L (98-107) L 06/15/17 06:12 Carbon Dioxide 27 mmol/L (22-30) 06/15/17 06:12 Anion Gap 15 mmol/L 06/15/17 06:12 BUN 9 mg/dL (9-20) 06/15/17 06:12 Creatinine 0.4 mg/dL (0.8-1.5) L 06/15/17 06:12 Estimated GFR > 60 ml/min 06/15/17 06:12 BUN/Creatinine Ratio 23 % 06/15/17 06:12 Glucose 102 mg/dL (75-100) H 06/15/17 06:12 POC Glucose 391 (70-105) H 06/15/17 15:56 Lactic Acid 1.70 mmol/L (0.7-2.0) 06/13/17 01:58 Calcium 7.9 mg/dL (8.4-10.2) L 06/15/17 06:12 Magnesium 1.90 mg/dL (1.7-2.3) 06/15/17 06:12 Total Creatine Kinase 41 units/L (55-170) L 06/13/17 11:19 CK-MB (CK-2) 1.5 ng/mL (0.0-4.0) 06/13/17 11:19 CK-MB (CK-2) Rel Index 3.6 (0-4) 06/13/17 11:19 Troponin T < 0.010 ng/mL (0.00-0.029) 06/13/17 11:19 NT-Pro-B Natriuret Pep 3359 pg/mL (0-900) H 06/12/17 20:37 Triglycerides 57 mg/dL (2-149) 06/14/17 06:13 Cholesterol 123 mg/dL (50-199) 06/14/17 06:13 LDL Cholesterol Direct 19 mg/dL (50-130) L 06/14/17 06:13 HDL Cholesterol 93 mg/dL (40-59) H 06/14/17 06:13 Cholesterol/HDL Ratio 1.32 % 06/14/17 06:13
--- NOTE | 2017-06-15 22:43 | Treadmill Report ---
NUCLEAR CARDIAC IMAGING INDICATION FOR PROCEDURE: New onset congestive heart failure. CONSENT: Informed consent was obtained. DESCRIPTION OF PROCEDURE: Vasodilator stress was achieved with intravenous Lexiscan per protocol. Rest and stress myocardial perfusion imaging were performed per protocol with the intravenous administration of 10 mCi of technetium 99m Myoview and 28 mCi of technetium 99m Myoview respectively. Gated SPECT imaging demonstrates a post-stress left ventricular ejection fraction of 27%. The left ventricle is dilated and diffusely hypokinetic. The end systolic volume is 148 mL. Myocardial perfusion imaging demonstrates no significant cavity change between stress and rest. No significant stress induced reversible perfusion defects are seen. Nuclear cardiac imaging demonstrates severe left ventricular systolic dysfunction with no definite evidence for myocardial ischemia or necrosis. The findings are consistent with nonischemic cardiomyopathy. JOB# [id number] MEERA/PEEWEE
[2017-06-16] MEDS: PERCOCET 5/325 PO PRN (01:29)
[2017-06-16] MEDS: NOVOLOG SUB-Q SCH ×3 (08:28→16:20)
[2017-06-16] MEDS: LEVEMIR SUB-Q SCH (08:34)
[2017-06-16] MEDS: LOVENOX SUB-Q SCH (09:54)
[2017-06-16] MEDS: BABY ASPIRIN PO SCH (09:54)
[2017-06-16] MEDS: COREG PO SCH (09:55)
[2017-06-16] MEDS: ZESTRIL PO SCH (09:56)
[2017-06-16] MEDS ORDERED: LASIX PO SCH (10:00)
--- NOTE | 2017-06-16 12:00 | Progress Note ---
Assessment and Plan Assessment and plan: Patient is a 56 yo man with h/o dm, htm, alcohol abuse and pancreatitis who presented with sob and leg edema. Acute combined systolic and diastolic heart failure, poa: treated with iv lasix Hypokalemia: replete and recheck am CMP: Cardiology is following, stress test negative CHF > PNA HTN: low salt diet. Uncontrolled DM 2: add ssi, ada, he has hyperglycemia because of treatment for hypoglycemia, he was NPO for stress test (unable to be done with high o2 demand ) but received long acting insulin the night before. Severe MR / mild to mod TR H/o pancreatitis H/o ETOH abuse: counseling done 06/15/17: Still on high flow O2, will try to wean, consulted Pulmonology. 06/16/17: high flow o2 wean off yesterday, so Pulmonology consult Cancelled. He wants to go home, will d/c once o2 setup, he is on 3Liters of O2 History Interval history: Pt seen and examined, follow up for sob and leg swelling. He denies cp, fever, abd pains. He feels much better, no sob, even when he takes his O2 off, I saw him walking down the hallway with food tray without sob Hospitalist Physical - Physical exam Narrative exam: GEN: Thin frail BMI 18.6 NAD, AWAKE, ALERT, ORIENTATED 3 HEENT: NCAT, EOMI, PERRL, OP Clear NECK: supple, no adenopathy, no thyromegaly, no JVD CVS/HEART: rrr, NORMAL S1S2, pulses present bilaterally CHEST/LUNGS: Diminished bilaterally , Symmetrical chest expansion, good air entry bilaterally GI/Abdomen: soft, NTND, good bowel sounds, no guarding or rebound /Bladder: no suprapubic tenderness, no CVA or paraspinal tenderness EXT/Skin: Positive leg edema MSK: FROM x 4 Neuro: CN 2-12 grossly intact, no new focal deficits Psych: calm - Constitutional Vitals: Temp Pulse Resp BP Pulse Ox 98.5 F 101 H 18 124/88 97 06/16/17 07:50 06/16/17 09:56 06/16/17 07:50 06/16/17 09:56 06/16/17 08:45 General appearance: Present: no acute distress Results - Labs CBC & Chem 7: 06/14/17 06:13 06/15/17 06:12 Labs: Laboratory Last Values WBC 7.2 K/mm3 (4.5-11.0) 06/14/17 06:13 RBC 3.60 M/mm3 (3.65-5.03) L 06/14/17 06:13 Hgb 9.5 gm/dl (11.8-15.2) L 06/14/17 06:13 Hct 28.8 % (35.5-45.6) L D 06/14/17 06:13 MCV 80 fl (84-94) L 06/14/17 06:13 MCH 26 pg (28-32) L 06/14/17 06:13 MCHC 33 % (32-34) 06/14/17 06:13 RDW 14.6 % (13.2-15.2) 06/14/17 06:13 Plt Count 132 K/mm3 (140-440) L 06/14/17 06:13 Lymph % (Auto) 30.9 % (13.4-35.0) 06/14/17 06:13 [place] % (Auto) 6.7 % (0.0-7.3) 06/14/17 06:13 Eos % (Auto) 0.4 % (0.0-4.3) 06/14/17 06:13 Baso % (Auto) 0.4 % (0.0-1.8) 06/14/17 06:13 Lymph # 2.2 K/mm3 (1.2-5.4) 06/14/17 06:13 [place] # 0.5 K/mm3 (0.0-0.8) 06/14/17 06:13 Eos # 0.0 K/mm3 (0.0-0.4) 06/14/17 06:13 Baso # 0.0 K/mm3 (0.0-0.1) 06/14/17 06:13 Seg Neutrophils % 61.6 % (40.0-70.0) 06/14/17 06:13 Seg Neutrophils # 4.4 K/mm3 (1.8-7.7) 06/14/17 06:13 POC ABG pH 7.461 (7.35-7.45) H 06/13/17 02:58 POC ABG pCO2 38.0 (35-45) 06/13/17 02:58 POC ABG pO2 51 (80-105) L 06/13/17 02:58 POC ABG HCO3 27.1 06/13/17 02:58 POC ABG Total CO2 28 06/13/17 02:58 POC ABG O2 Sat 88 06/13/17 02:58 POC ABG Base Excess 3 06/13/17 02:58 FiO2 50 % 06/13/17 02:58 Sodium 135 mmol/L (137-145) L 06/15/17 06:12 Potassium 3.3 mmol/L (3.6-5.0) L 06/15/17 06:12 Chloride 96.5 mmol/L (98-107) L 06/15/17 06:12 Carbon Dioxide 27 mmol/L (22-30) 06/15/17 06:12 Anion Gap 15 mmol/L 06/15/17 06:12 BUN 9 mg/dL (9-20) 06/15/17 06:12 Creatinine 0.4 mg/dL (0.8-1.5) L 06/15/17 06:12 Estimated GFR > 60 ml/min 06/15/17 06:12 BUN/Creatinine Ratio 23 % 06/15/17 06:12 Glucose 102 mg/dL (75-100) H 06/15/17 06:12 POC Glucose 477 (70-105) H 06/16/17 08:29 Lactic Acid 1.70 mmol/L (0.7-2.0) 06/13/17 01:58 Calcium 7.9 mg/dL (8.4-10.2) L 06/15/17 06:12 Magnesium 1.90 mg/dL (1.7-2.3) 06/15/17 06:12 Total Creatine Kinase 41 units/L (55-170) L 06/13/17 11:19 CK-MB (CK-2) 1.5 ng/mL (0.0-4.0) 06/13/17 11:19 CK-MB (CK-2) Rel Index 3.6 (0-4) 06/13/17 11:19 Troponin T < 0.010 ng/mL (0.00-0.029) 06/13/17 11:19 NT-Pro-B Natriuret Pep 3359 pg/mL (0-900) H 06/12/17 20:37 Triglycerides 57 mg/dL (2-149) 06/14/17 06:13 Cholesterol 123 mg/dL (50-199) 06/14/17 06:13 LDL Cholesterol Direct 19 mg/dL (50-130) L 06/14/17 06:13 HDL Cholesterol 93 mg/dL (40-59) H 06/14/17 06:13 Cholesterol/HDL Ratio 1.32 % 06/14/17 06:13
--- NOTE | 2017-06-16 12:05 | Discharge Summary ---
Providers - Providers Date of Admission: 06/13/17 04:26 Attending physician: LISA WHITING 06/13/17 04:26 Consult to Physician [CONS] Routine Consulting Provider: FAM HERNANDEZ Reason For Exam: chf, cp Place consult to:: Rosalie Mederos Notified:: yes Phone number called:: in person Was contact made?: Yes If yes, spoke with:: Rosalie Time called:: 08:57 Primary care physician: PHARMACY TEACHER Hospitalization Condition: Stable Hospital course: Patient is a 56 yo man with h/o dm, htm, alcohol abuse and pancreatitis who presented with sob and leg edema. Acute combined systolic and diastolic heart failure, poa: treated with iv lasix Hypokalemia: replete and recheck am CMP: Cardiology is following, stress test negative CHF > PNA HTN: low salt diet. Uncontrolled DM 2: add ssi, ada, he has hyperglycemia because of treatment for hypoglycemia, he was NPO for stress test (unable to be done with high o2 demand ) but received long acting insulin the night before. Severe MR / mild to mod TR H/o pancreatitis H/o ETOH abuse: counseling done 06/15/17: Still on high flow O2, will try to wean, consulted Pulmonology. 06/16/17: high flow o2 wean off yesterday, so Pulmonology consult Cancelled. He wants to go home, will d/c once o2 setup, he is on 3Liters of O2 Disposition: DC-01 TO HOME OR SELFCARE Time spent for discharge: 38 minutes Core Measure Documentation - Palliative Care Palliative Care/ Comfort Measures: Not Applicable - Core Measures Any of the following diagnoses?: heart failure - VTE Discharge Requirements Deep Vein Thrombosis/Pulmonary Embolism Present on Admission: No Has pt received <5 days of overlap therapy or INR<2.0: No Anticoagulant overlap therapy prescribed at discharge: No Contraindication No Overlap Therapy order at DC: Not Indicated - Heart Failure Discharge Requirements LINDA/ARB for LVSD if EF <40%: Yes Beta kali at discharge: Yes Exam - Physical Exam Narrative exam: GEN: Thin frail BMI 18.6 NAD, AWAKE, ALERT, ORIENTATED 3 HEENT: NCAT, EOMI, PERRL, OP Clear NECK: supple, no adenopathy, no thyromegaly, no JVD CVS/HEART: rrr, NORMAL S1S2, pulses present bilaterally CHEST/LUNGS: Diminished bilaterally , Symmetrical chest expansion, good air entry bilaterally GI/Abdomen: soft, NTND, good bowel sounds, no guarding or rebound /Bladder: no suprapubic tenderness, no CVA or paraspinal tenderness EXT/Skin: Positive leg edema MSK: FROM x 4 Neuro: CN 2-12 grossly intact, no new focal deficits Psych: calm - Constitutional Vitals: Temp Pulse Resp BP Pulse Ox 98.5 F 101 H 18 124/88 97 06/16/17 07:50 06/16/17 09:56 06/16/17 07:50 06/16/17 09:56 06/16/17 08:45 Plan Activity: other (no strenous activity until cleared by Cardiology) Diet: low salt, diabetic Special Instructions: record daily BP diary, record blood sugar diary (three times a day with meals) Follow up with: [facility] [Provider Group] - 7 Days MICHAEL SLATER MD [Staff Physician] - 7 Days [facility], [Primary Care Provider] - 3-5 Days BRAYDON WEST MD [Staff Physician] - 7 Days Prescriptions: Aspirin [Aspirin BABY CHEW TAB] 81 mg PO QDAY #30 tab.chew Carvedilol [Coreg] 3.125 mg PO BID #60 tablet Furosemide [Lasix TAB] 40 mg PO QDAY #30 tablet Insulin Detemir [Levemir] 20 units SUB-Q QAMDIAB #30 units Lisinopril [Zestril TAB] 2.5 mg PO QDAY #30 tablet oxyCODONE /ACETAMINOPHEN [Percocet 5/325 mg] 1 tab PO Q6H PRN #20 tablet PRN Reason: Pain , Severe (7-10)
[2017-06-16 13:34] VITALS: BP 127/88
--- NOTE | 2017-06-16 14:57 | Event Note ---
Date: 06/16/17 Patient consulted for pulmonary evaluation. Dr. Hoyos cancelled the pulmonary consult. Patient discharged to go home. Patient can come to my office as out patient for pulmonary evaluation.
== END 2017-06-16 19:00 | disposition home or self-care (01) | DRG 291 ==
LOC: ED 16:38 → 4A 06-13 04:26
PROVIDERS: ADMIT Internal Medicine; ATTEND Internal Medicine
PROC: 4A033R1 Measurement of Arterial Saturation, Peripheral, Percutaneous Approach (ICD-10-PCS; 2017-06-13)
PROC: 3E0234Z Introduction of Serum, Toxoid and Vaccine into Muscle, Percutaneous Approach (ICD-10-PCS; principal; 2017-06-14)
DX: I11.0 Hypertensive heart disease with heart failure (principal); J18.9 Pneumonia, unspecified organism; K86.1 Other chronic pancreatitis; I50.41 Acute combined systolic (congestive) and diastolic (congestive) heart failure; I42.8 Other cardiomyopathies; F10.10 Alcohol abuse, uncomplicated; E87.6 Hypokalemia; E11.65 Type 2 diabetes mellitus with hyperglycemia; R09.02 Hypoxemia; Z82.49 Family history of ischemic heart disease and other diseases of the circulatory system; Z71.41 Alcohol abuse counseling and surveillance of alcoholic; Z23 Encounter for immunization
CPT/HCPCS: 36415; 71046; 78452; 80048; 80061; 82140; 82550; 82553; 82803; 82947; 82962; 83735; 83880; 84484; 85025; 90686; 93017; 93306; 94760; 96374; 96375; 96376; 99285; 99406; A9502; J1650; J1815; J1818; J1940; J2785

== ENCOUNTER 2017-06-17 14:47 | Inpatient (IN) | payer OTHER ==
[2017-06-17] MEDS ORDERED: ASPIRIN PO ONE (14:55)
[2017-06-17 15:40] LABS: Basophils % (Auto) 0.3 % (0.0-1.8); Eosinophils % (Auto) 0.2 % (0.0-4.3); Hematocrit 28.2 % (35.5-45.6); Hemoglobin 9.2 gm/dl (11.8-15.2); Lymphocytes # (Auto) 1.4 K/mm3 (1.2-5.4); Lymphocytes % (Auto) 16.8 % (13.4-35.0); Mean Corpuscular HGB Conc 33 % (32-34); Mean Corpuscular Hemoglobin 26 pg (28-32); Mean Corpuscular Volume 80 fl (84-94); Monocytes # (Auto) 0.8 K/mm3 (0.0-0.8); Monocytes % (Auto) 9.2 % (0.0-7.3); Platelet Count 159 K/mm3 (140-440); Red Blood Count 3.52 M/mm3 (3.65-5.03); Red Cell Distribution Width 14.6 % (13.2-15.2)
[2017-06-17 16:03] LABS: BUN/Creatinine Ratio 17; Blood Urea Nitrogen 12 mg/dL (9-20); Calcium 8.4 mg/dL (8.4-10.2); Hemolysis Index 1
[2017-06-17] MEDS ORDERED: LASIX IV ONE (16:10)
--- NOTE | 2017-06-17 16:13 | Emergency Department Report ---
Blank Doc - Documentation Documentation: Patient is a 56-year-old male who recently diagnosed with congestive heart failure and S and diabetes who was just discharged yesterday from the hospital and states once he got home he immediately started having increased swelling in his legs shortness of breath and orthopnea. Patient states that he has a crackling sound when he breathes has been short of breath especially with exertion exertion. Patient also has some left-sided chest pain sharp. Patient vital signs his O2 sat at rest is 97% however he is tachycardic to 1 teens. Patient's has rails bilateral and 2+ edema to the ankles and calves. Patient removed the treatment room will receive IV Lasix. So a director cardiac will monitor the patient's laboratory studies patient will be reassessed by MLP
--- NOTE | 2017-06-17 17:18 | Emergency Department Report ---
ED General Adult HPI - General Chief complaint: Chest Pain Stated complaint: RUTH/CHEST PAIN Time Seen by Provider: 06/17/17 15:46 Source: patient Mode of arrival: Ambulatory Limitations: No Limitations - History of Present Illness Initial comments: 56-year-old male male history of recent diagnosis of heart failure history of EtOH history of tobacco here for evaluation of intermittent chest pain shortness of breath with come and see ambulate edema. Question of cough positive dyspnea no fever, lexican this week neg for ischemia, ef 27% w. valvular heart dz and hx pancreatitis and dm hx w/ diastolic and systolic failure for eval persistant cp and sob w/ pedal edema.poss cough and fever, and int cp -: Gradual Location: chest Radiation: non-radiation Worsens with: none Associated Symptoms: diaphoresis, shortness of breath - Related Data Previous Rx's Medication Instructions Recorded Last Taken Type Acetaminophen [Acetaminophen TAB] 325 mg PO Q4H PRN #30 tablet 06/16/17 Unknown Rx Aspirin [Aspirin BABY CHEW TAB] 81 mg PO QDAY #30 tab.chew 06/16/17 Unknown Rx Carvedilol [Coreg] 3.125 mg PO BID #60 tablet 06/16/17 Unknown Rx Furosemide [Lasix TAB] 40 mg PO QDAY #30 tablet 06/16/17 Unknown Rx Insulin Detemir [Levemir] 20 units SUB-Q QAMDIAB #30 units 06/16/17 Unknown Rx Lisinopril [Zestril TAB] 2.5 mg PO QDAY #30 tablet 06/16/17 Unknown Rx oxyCODONE /ACETAMINOPHEN [Percocet 1 tab PO Q6H PRN #20 tablet 06/16/17 Unknown Rx 5/325 mg] Allergies Allergy/AdvReac Type Severity Reaction Status Date / Time No Known Allergies Allergy Verified 11/12/15 06:05 ED Review of Systems ROS: Stated complaint: RUTH/CHEST PAIN Other details as noted in HPI Comment: All other systems reviewed and negative Constitutional: weakness. denies: malaise Respiratory: orthopnea, shortness of breath. denies: stridor, wheezing Cardiovascular: chest pain, dyspnea on exertion, orthopnea, edema. denies: palpitations, syncope Gastrointestinal: denies: abdominal pain, nausea, vomiting, diarrhea, constipation, hematemesis, melena, hematochezia Musculoskeletal: denies: arthralgia, myalgia Neurological: weakness. denies: headache, numbness, paresthesias, confusion, abnormal gait, vertigo Psychiatric: denies: auditory hallucinations, visual hallucinations, homicidal thoughts, suicidal thoughts Hematological/Lymphatic: denies: easy bruising ED Past Medical Hx - Past Medical History Hx Hypertension: Yes Hx Congestive Heart Failure: Yes Hx Diabetes: Yes Hx Asthma: No Hx COPD: No Hx HIV: No - Surgical History Hx Appendectomy: Yes - Social History Smoking Status: Former Smoker Substance Use Type: None - Medications Home Medications: Home Medications Medication Instructions Recorded Confirmed Last Taken Type Acetaminophen [Acetaminophen TAB] 325 mg PO Q4H PRN #30 tablet 06/16/17 Unknown Rx Aspirin [Aspirin BABY CHEW TAB] 81 mg PO QDAY #30 tab.chew 06/16/17 Unknown Rx Carvedilol [Coreg] 3.125 mg PO BID #60 tablet 06/16/17 Unknown Rx Furosemide [Lasix TAB] 40 mg PO QDAY #30 tablet 06/16/17 Unknown Rx Insulin Detemir [Levemir] 20 units SUB-Q QAMDIAB #30 units 06/16/17 Unknown Rx Lisinopril [Zestril TAB] 2.5 mg PO QDAY #30 tablet 06/16/17 Unknown Rx oxyCODONE /ACETAMINOPHEN [Percocet 1 tab PO Q6H PRN #20 tablet 06/16/17 Unknown Rx 5/325 mg] ED Physical Exam - General Limitations: No Limitations General appearance: alert, in distress - Head Head exam: Present: atraumatic, normocephalic - Eye Eye exam: Present: normal appearance, PERRL, EOMI - ENT ENT exam: Present: normal exam, normal orophraynx - Neck Neck exam: Absent: tenderness, meningismus - Respiratory Respiratory exam: Present: respiratory distress, wheezes, rales, rhonchi, other (mild respiratory distress). Absent: stridor, chest wall tenderness - Cardiovascular Cardiovascular Exam: Present: tachycardia, systolic murmur, clicks - Extremities Exam Extremities exam: Present: pedal edema. Absent: calf tenderness - Back Exam Back exam: Present: normal inspection. Absent: CVA tenderness (R), CVA tenderness (L), muscle spasm, paraspinal tenderness, vertebral tenderness - Neurological Exam Neurological exam: Present: alert, oriented X3, CN II-XII intact. Absent: motor sensory deficit - Psychiatric Psychiatric exam: Present: anxious ED Course Vital Signs 06/17/17 06/17/17 06/17/17 14:52 17:20 17:23 Temperature 98.7 F 98.3 F Pulse Rate 119 H 102 H Respiratory 18 19 Rate Blood Pressure 143/95 Blood Pressure 126/90 [Right] O2 Sat by Pulse 97 96 95 Oximetry 06/17/17 06/17/17 06/17/17 17:25 17:30 17:45 Temperature Pulse Rate 103 H Respiratory 19 20 Rate Blood Pressure 133/81 138/94 Blood Pressure [Right] O2 Sat by Pulse 95 95 Oximetry 06/17/17 06/17/17 06/17/17 18:00 18:15 18:30 Temperature Pulse Rate Respiratory Rate Blood Pressure 136/99 130/95 125/87 Blood Pressure [Right] O2 Sat by Pulse 97 95 95 Oximetry 06/17/17 06/17/17 06/17/17 18:45 19:00 19:15 Temperature Pulse Rate Respiratory Rate Blood Pressure 128/87 130/91 135/95 Blood Pressure [Right] O2 Sat by Pulse 97 97 94 Oximetry 06/17/17 06/17/17 06/17/17 19:30 19:45 20:00 Temperature Pulse Rate Respiratory Rate Blood Pressure 130/93 125/88 131/97 Blood Pressure [Right] O2 Sat by Pulse 92 96 97 Oximetry 06/17/17 06/17/17 06/17/17 20:15 20:30 20:45 Temperature Pulse Rate 98 H 100 H Respiratory 19 13 Rate Blood Pressure 127/91 129/90 129/90 Blood Pressure [Right] O2 Sat by Pulse 95 94 Oximetry 06/17/17 06/17/17 06/17/17 21:17 21:30 21:45 Temperature Pulse Rate 95 H 96 H Respiratory 13 15 18 Rate Blood Pressure 127/91 121/83 Blood Pressure [Right] O2 Sat by Pulse 97 95 Oximetry 06/17/17 21:48 Temperature 98 F Pulse Rate Respiratory Rate Blood Pressure Blood Pressure [Right] O2 Sat by Pulse Oximetry - Reevaluation(s) Reevaluation #1: 06/17/17 22:28 Patient had initial MSe laboratory studies were ordered EKG was nondiagnostic but did have sinus tach with LVH and nonspecific ST change patient presented with shortness of breath chest pain possible fever and cough recently discharged for CHF. History of pancreatitis with history of alcohol and tobacco abuse ED Medical Decision Making - Lab Data Result diagrams: 06/17/17 15:05 06/17/17 15:05 - EKG Data EKG shows normal: sinus rhythm Rate: tachycardia - EKG Data Interpretation: nonspecific ST-T wave raphael, LVH - Radiology Data Radiology results: report reviewed Bilateral groundglass opacities bilateral pleural effusion - Medical Decision Making Patient will be admitted for further evaluation of CHF he does have elevated BNP. Troponin is negative 3. DVT screening d-dimer was elevated. CT was therefore ordered. This shows no PE but he does have likely pneumonia with CHF. There are seeing narrowing of the pancreatic duct he will have a CT abdomen as well case was discussed with Dr. grande for evaluation for admission to the hospitalist service.. Patient did have blood cultures and antibiotics as well as Lasix. Critical care attestation.: If time is entered above; I have spent that time in minutes in the direct care of this critically ill patient, excluding procedure time. ED Disposition Clinical Impression: Pneumonia, CHF (congestive heart failure), History of pancreatitis Disposition: OP ADMIT IP TO THIS HOSP Is pt being admited?: Yes Condition: Serious Instructions: Bacterial Pneumonia (ED) Referrals: PRIMARY CAREMD [Primary Care Provider] - 3-5 Days Time of Disposition: 22:34
--- NOTE | 2017-06-17 18:17 | XRay Report ---
FINAL REPORT PROCEDURE: XR CHEST ROUTINE 2V TECHNIQUE: PA and lateral chest radiographs were obtained. CPT 18593 HISTORY: Cough. COMPARISON: Chest radiograph dated 06/12/2017. FINDINGS: Heart: The heart size is top-normal. Mediastinum/Vessels: Normal. Lungs/Pleural space: Interval improvement in patchy perihilar and bibasilar opacities. Small to moderate right and small left pleural effusions also appear slightly improved. Ovoid 7.6 x 3.7 cm opacity in the right mid thorax, slightly better defined on the current examination. Elevation of the right diaphragm. Subtle lucency about the right costophrenic angle. Bony thorax: Small multilevel osteophytes and disc space narrowing with slight wedge compression in the mid thoracic spine. Other: IMPRESSION: Improving pulmonary opacities and effusion, consider improving atelectasis and/or pneumonia. There may be underlying congestive heart failure which has improved. Ovoid opacity in the right middle lung, likely fluid in the fissure rather than mass lesion. Subtle lucency about the right costophrenic angle likely aerated lung, also consider subtle cavitation and/or subtle right basilar pneumothorax although felt to be less likely. Consider further characterization including CT scan of the chest if there is continued clinical concern.
--- NOTE | 2017-06-17 22:10 | Cat Scan Report ---
FINAL REPORT PROCEDURE: CT ANGIO CHEST TECHNIQUE: Computerized tomographic angiography of the chest was performed after the IV injection of iodinated nonionic contrast including image processing. The image data was postprocessed using 2-dimensional multiplanar reformatted (MPR) and 3-dimensional (MIP and/or volume rendered) techniques. HISTORY: sob/elev ddimer COMPARISON: No prior studies are available for comparison. FINDINGS: Bilateral pulmonary arteries and their branches demonstrate normal opacification without filling defects. Aorta is of normal caliber without evidence of dissection. There is mild cardiomegaly with coronary arterial calcification. There is no lymphadenopathy. Thyroid is unremarkable. Mild degree bilateral pleural effusions are noted left more than right with atelectasis of left lower lobe. Extensive ground-glass opacification is noted involving left upper lobe and the a Lessor extent involving the remaining bilateral lobes. Areas of loculated pleural effusion are noted involving the right oblique fissure. Subsegmental atelectatic changes are noted in the right lower lobe. Evaluation of visualized upper abdominal structures demonstrate multiple calculi in dilated pancreatic duct 8 millimeters in caliber.. IMPRESSION: There on glass opacities involving bilateral lungs predominantly left upper lobe are consistent with areas of pneumonia Bilateral pleural effusions left more than right No evidence of pulmonary embolism Cardiomegaly Dilated pancreatic duct with pancreatic ductal calculi. CT of the abdomen is recommended for further evaluation.
[2017-06-17] MEDS ORDERED: ROCEPHIN/NS 1 GM/50 ML 1 GM/50 ML BAG IV ONE (22:16)
[2017-06-17] MEDS ORDERED: ZITHROMAX 500 MG in NACL 0.9% 250ML 250 ML IV ONE (22:16)
[2017-06-17] MEDS ORDERED: cefTRIAXone 1 GM in NACL 0.9% 20 ML IV ONE (22:30)
--- NOTE | 2017-06-17 22:56 | History and Physical Report ---
History of Present Illness Date of examination: 06/17/17 Chief complaint: Chest pain shortness of breath History of present illness: 56-year-old male male history of recent diagnosis of heart failure history of EtOH history of tobacco here for evaluation of intermittent chest pain shortness of breath with come and see ambulate edema. Question of cough positive dyspnea no fever, lexican this week neg for ischemia, ef 27% w. valvular heart dz and hx pancreatitis and dm hx w/ diastolic and systolic failure for eval persistant cp and sob w/ pedal edema.poss cough and fever, and int cp PAST MEDICAL HISTORY:hypertension, diabetes, alcohol abuse, pancreatitis PAST SURGICAL HISTORY: None FAMILY HISTORY: Hypertension SOCIAL HISTORY: Alcohol abuse54 years, Quit 1 month ago, stated he also quit cigarettes but does smoke a cigar every now and then, no drugs Medications and Allergies Allergies Allergy/AdvReac Type Severity Reaction Status Date / Time No Known Allergies Allergy Verified 11/12/15 06:05 Home Medications Medication Instructions Recorded Confirmed Last Taken Type Acetaminophen [Acetaminophen TAB] 325 mg PO Q4H PRN #30 tablet 06/16/17 Unknown Rx Aspirin [Aspirin BABY CHEW TAB] 81 mg PO QDAY #30 tab.chew 06/16/17 Unknown Rx Carvedilol [Coreg] 3.125 mg PO BID #60 tablet 06/16/17 Unknown Rx Furosemide [Lasix TAB] 40 mg PO QDAY #30 tablet 06/16/17 Unknown Rx Insulin Detemir [Levemir] 20 units SUB-Q QAMDIAB #30 units 06/16/17 Unknown Rx Lisinopril [Zestril TAB] 2.5 mg PO QDAY #30 tablet 06/16/17 Unknown Rx oxyCODONE /ACETAMINOPHEN [Percocet 1 tab PO Q6H PRN #20 tablet 06/16/17 Unknown Rx 5/325 mg] Active Meds: Active Medications Azithromycin 500 mg/ Sodium (Chloride) 250 mls @ 250 mls/hr IV ONCE.ED ONE Stop: 06/17/17 23:15 Last Admin: 06/17/17 22:50 Dose: 250 mls/hr Review of Systems All systems: negative (114 systems reviewed and found to be negative except as mentioned in HPI) Exam - Physical Exam Narrative exam: Gen. appearance: Patient awake alert oriented to time place and person. Lying in bed in no acute distress HEENT: Normocephalic/atraumatic, pupils equal round reactive to light, extra occular movement intact, no scleral icterus, no JVD or thyromegaly or nodule, neck is supple, mucous membrane moist, no erythema or exudate Heart: S1-S2, regular rate and rhythm, 3 x 6 systolic ejection murmur Lungs: Crackles bilateral , scattered rhonchi mildly labored breathing but no accessory respiratory muscle use. Abdomen: Positive bowel sounds, nontender, nondistended, no organomegaly Extremities: +edema,no cyanosis, clubbing Neuro:: Oriented 3 , cranial nerves II-12 intact, speech, motor intact Skin: No rash, nodules, warm dry - Constitutional Vitals: Temp Pulse Resp BP Pulse Ox 98 F 103 H 22 142/96 86 06/17/17 21:48 06/17/17 22:15 06/17/17 22:15 06/17/17 22:34 06/17/17 22:34 Results - Labs CBC & Chem 7: 06/17/17 15:05 06/17/17 15:05 Labs: Laboratory Last Values WBC 8.5 K/mm3 (4.5-11.0) 06/17/17 15:05 RBC 3.52 M/mm3 (3.65-5.03) L 06/17/17 15:05 Hgb 9.2 gm/dl (11.8-15.2) L 06/17/17 15:05 Hct 28.2 % (35.5-45.6) L 06/17/17 15:05 MCV 80 fl (84-94) L 06/17/17 15:05 MCH 26 pg (28-32) L 06/17/17 15:05 MCHC 33 % (32-34) 06/17/17 15:05 RDW 14.6 % (13.2-15.2) 06/17/17 15:05 Plt Count 159 K/mm3 (140-440) 06/17/17 15:05 Lymph % (Auto) 16.8 % (13.4-35.0) 06/17/17 15:05 [place] % (Auto) 9.2 % (0.0-7.3) H 06/17/17 15:05 Eos % (Auto) 0.2 % (0.0-4.3) 06/17/17 15:05 Baso % (Auto) 0.3 % (0.0-1.8) 06/17/17 15:05 Lymph # 1.4 K/mm3 (1.2-5.4) 06/17/17 15:05 [place] # 0.8 K/mm3 (0.0-0.8) 06/17/17 15:05 Eos # 0.0 K/mm3 (0.0-0.4) 06/17/17 15:05 Baso # 0.0 K/mm3 (0.0-0.1) 06/17/17 15:05 Seg Neutrophils % 73.5 % (40.0-70.0) H 06/17/17 15:05 Seg Neutrophils # 6.2 K/mm3 (1.8-7.7) 06/17/17 15:05 D-Dimer 284.17 ng/mlDDU (0-234) H 06/17/17 16:18 Sodium 135 mmol/L (137-145) L 06/17/17 15:05 Potassium 4.1 mmol/L (3.6-5.0) D 06/17/17 15:05 Chloride 97.0 mmol/L (98-107) L 06/17/17 15:05 Carbon Dioxide 25 mmol/L (22-30) 06/17/17 15:05 Anion Gap 17 mmol/L 06/17/17 15:05 BUN 12 mg/dL (9-20) 06/17/17 15:05 Creatinine 0.7 mg/dL (0.8-1.5) L D 06/17/17 15:05 Estimated GFR > 60 ml/min 06/17/17 15:05 BUN/Creatinine Ratio 17 % 06/17/17 15:05 Glucose 527 mg/dL (75-100) H* 06/17/17 15:05 Calcium 8.4 mg/dL (8.4-10.2) 06/17/17 15:05 Troponin T < 0.010 ng/mL (0.00-0.029) 06/17/17 20:17 NT-Pro-B Natriuret Pep 4589 pg/mL (0-900) H 06/17/17 15:05 - Imaging and Cardiology Imaging and Cardiology: EKG shows normal: sinus rhythm, tachycardia. Nonspecific ST-T wave changes but otherwise negative for acute ischemia or other arrhythmia Chest x-ray: Showing Bilateral groundglass opacities bilateral pleural effusion. Overall improving pulmonary opacities and effusion. Underlying congestive heart failure which is improved. There is an ovoid opacity in the right middle lung likely fluid in the fissure. CTA chest showing ground glass opacities involving bilateral lungs predominantly in the left upper system with areas of pneumonia. bilateral pleural effusions left more than the right. no pe cardiomegaly present. there is dilated pancreatic duct with pancreatic ductal calculi. Assessment and Plan Assessment and plan: Assessment and plan - * Acute on chronic CHF - continue home meds diurese aggressively * Bilateral interstitial pneumonia - more predominant in the left upper lobe left greater than right - started empirically on antibiotics Rocephin and azithromycin- * Bilateral pleural effusion likely parapneumonic left greater than right * Dilated CBD CT abdomen and pelvis follow-up results consult surgery or GI if needed or indicated- * Anemia likely chronic anemia studies as ordered follow-up results treat appropriately as indicated- * Chest pain - likely due to underlying acute CHF exacerbation, troponin 3 negative, monitor on cardiac telemetry. S/p lexiscan MPI stress test 06/15/17. which was negative for ischemia, EF 27%. * Diabetes uncontrolled: Mr. hemoglobin A1c monitor blood sugars with Accu- Cheks every before meals daily at bedtime and cover with sliding scale insulin. * Hypertension controlled - continue home meds monitor vital signs- * Chronic pancreatitis - pain management * Severe MR / mild to mod TR * H/o ETOH abuse - patient quit 1 month prior to his previous admission Plan - Admit to medicine Start IV Lasix, beta kali, LINDA inhibitor, aspirin If needed we will consult cardiology Monitor I's and O's, daily weights GI prophylaxis DVT prophylaxis previous Echo reviewed - EF 25-30%, grade 3 LV diastolic dysfunction, LA dilated , mild AR, severe MR, mild to mod TR, RVSP 40mmHg, large bilateral pleural effusions. lipid panel in AM. VTE prophylaxis?: Chemical, Mechanical Plan of care discussed with patient/family: Yes
[2017-06-17] MEDS ORDERED: ZOFRAN IV PRN (23:13)
[2017-06-17] MEDS ORDERED: MILK OF MAGNESIA PO PRN (23:13)
[2017-06-17] MEDS ORDERED: NARCAN 0.4 MG/1 ML IV PRN (23:13)
[2017-06-17] MEDS ORDERED: D50W (25GM) Syringe IV PRN (23:13)
[2017-06-17] MEDS ORDERED: PROVENTIL IH PRN (23:13)
[2017-06-17] MEDS ORDERED: NITROSTAT SL PRN (23:13)
[2017-06-17] MEDS ORDERED: XANAX PO PRN (23:13)
[2017-06-17] MEDS ORDERED: PERCOCET 5/325 PO PRN (23:13)
[2017-06-17] MEDS ORDERED: DULCOLAX PR PRN (23:13)
[2017-06-17] MEDS ORDERED: TYLENOL PO PRN ×2 (23:13→23:29)
[2017-06-17 23:37] LABS: Alanine Aminotransferase 185 units/L (7-56); Albumin 3.4 g/dL (3.9-5); Lipase 22 units/L (13-60)
[2017-06-17 23:43] LABS: Bilirubin,Direct < 0.2 mg/dL (0-0.2)
[2017-06-18] MEDS ORDERED: MORPHINE IV PRN (00:05)
--- NOTE | 2017-06-18 00:26 | Cat Scan Report ---
FINAL REPORT PROCEDURE: CT ABDOMEN PELVIS WO CON TECHNIQUE: Computerized axial tomography of the abdomen and pelvis was performed without intravenous contrast. This study is performed without intravascular contrast material and its sensitivity for abdominal and pelvic pathology, including neoplasms, inflammation, abscess, free fluid, thrombosis, arterial dissection and infarction, is reduced compared with a contrast enhanced study. HISTORY: pain COMPARISON: 11/17/2016 FINDINGS: Visualized lower thorax: Bilateral lower lung infiltrates are identified on this study. Slight pleural thickening and pleural effusions are identified. Further evaluation with followup study after clinical therapy is recommended.. Liver: The liver is slightly enlarged. No masses are identified.. Spleen: Normal size and attenuation. Gallbladder and biliary system: The gallbladder has a normal lumen caliber. No stones are identified.. Pancreas: The pancreas is enlarged on today's study. Numerous calcifications are identified throughout the pancreas which is a new finding since prior exam. There is dilatation of the pancreatic duct. Chronic pancreatitis is suspected.. Adrenals: Normal. Kidneys: No urinary tract obstruction. The kidneys have normal size. No masses are identified.. GI tract: The stomach is normal. The small bowel has a normal caliber. No obstruction is seen. Moderate fecal debris throughout the colon. The appendix is not visualized on this study. Evaluation of the colon is limited without contrast.. Lymph nodes and mesentery: Normal. Vasculature: Moderate atherosclerosis of the aorta and all branching vessels. Bladder: Normal. Reproductive organs: Normal. Peritoneum: No free fluid. Musculoskeletal structures: No significant abnormality. Other: None. IMPRESSION: The pancreas is enlarged with numerous calcifications identified throughout the pancreas and dilatation of the pancreatic duct. Chronic pancreatitis is suspected. The liver is slightly enlarged on today's study. Bilateral lower lung infiltrates and moderate effusions. Underlying pathology is not excluded on the basis of this study. Recheck evaluation after clinical therapy is recommended. .
[2017-06-18] MEDS: DUONEB *Not for PRN Use IH SCH ×4 (02:55→19:43)
[2017-06-18 03:15] LABS: Chol/HDL Ratio 1.67 %
[2017-06-18] MEDS: NOVOLOG SUB-Q SCH ×4 (06:39→23:03)
[2017-06-18] MEDS: LASIX IV SCH ×2 (06:40→18:26)
[2017-06-18] MEDS: LEVEMIR SUB-Q SCH (08:47)
--- NOTE | 2017-06-18 09:01 | Progress Note ---
Assessment and Plan * Acute on chronic CHF - strict input and output charts, Daily weight, beta kali and ACEI. ECHO of 06/13/2017 showed EF of 25-30% * Bilateral interstitial pneumonia - more predominant in the left upper lobe left greater than right - started empirically on antibiotics Rocephin and azithromycin- * Bilateral pleural effusion likely parapneumonic left greater than right * Dilated CBD CT abdomen and pelvis follow-up results consult surgery or GI if needed or indicated- * Anemia likely chronic anemia studies as ordered follow-up results treat appropriately as indicated- * Chest pain - likely due to underlying acute CHF exacerbation, troponin 3 negative, monitor on cardiac telemetry. S/p lexiscan MPI stress test 06/15/17. which was negative for ischemia, EF 27%. * Diabetes uncontrolled: hemoglobin A1c monitor blood sugars with Accu- Cheks every before meals daily at bedtime and cover with sliding scale insulin. * Hypertension controlled - continue home meds monitor vital signs- * Chronic pancreatitis - pain management * Severe MR / mild to mod TR * H/o ETOH abuse - patient quit 1 month prior to his previous admission Plan - Continue IV Lasix, beta kali, LINDA inhibitor, aspirin Monitor I's and O's, daily weights iv antibiotic with Azithromy and Rocephin. F/u with blood and sputum Cx GI prophylaxis DVT prophylaxis previous Echo reviewed - EF 25-30%, grade 3 LV diastolic dysfunction, LA dilated , mild AR, severe MR, mild to mod TR, RVSP 40mmHg, large bilateral pleural effusions. Subjective Date of service: 06/18/17 Principal diagnosis: chronic systolic heart failure, pneumonia Interval history: Patient seen and examined. Shortness of breath. Reviewed Laboratory and radiological data. Objective - Constitutional Vitals: Vital Signs - 12hr 06/17/17 06/17/17 06/17/17 21:17 21:30 21:45 Temperature Pulse Rate 95 H 96 H 100 H Pulse Rate [ Left Radial] Respiratory 13 15 19 Rate Blood Pressure 127/91 121/83 121/83 O2 Sat by Pulse 97 95 95 Oximetry 06/17/17 06/17/17 06/17/17 21:48 22:00 22:15 Temperature 98 F Pulse Rate 101 H 103 H Pulse Rate [ Left Radial] Respiratory 19 22 Rate Blood Pressure 142/96 142/96 O2 Sat by Pulse 95 96 Oximetry 06/17/17 06/18/17 06/18/17 22:34 02:43 04:00 Temperature Pulse Rate Pulse Rate [ 103 H Left Radial] Respiratory 20 18 Rate Blood Pressure 142/96 O2 Sat by Pulse 86 96 100 Oximetry 06/18/17 04:17 Temperature 98 F Pulse Rate 88 Pulse Rate [ Left Radial] Respiratory Rate Blood Pressure O2 Sat by Pulse Oximetry General appearance: Present: no acute distress, well-nourished - EENT Eyes: PERRL, EOM intact - Neck Neck: supple, normal ROM - Respiratory Respiratory: bilateral: diminished - Cardiovascular Rhythm: regular Heart Sounds: Present: S1 & S2. Absent: gallop, rub Extremities: pulses intact, No edema, Full ROM - Gastrointestinal General gastrointestinal: Present: soft, non-tender, normal bowel sounds - Integumentary Integumentary: clear, warm, dry - Musculoskeletal Musculoskeletal: 1, strength equal bilaterally - Neurologic Neurologic: moves all extremities - Psychiatric Psychiatric: memory intact, appropriate mood/affect, intact judgment & insight - Labs CBC & Chem 7: 06/18/17 08:37 06/18/17 08:37 Labs: Abnormal lab results 06/17/17 06/17/17 06/17/17 Range/Units 15:05 15:05 15:05 RBC 3.52 L (3.65-5.03) M/mm3 Hgb 9.2 L (11.8-15.2) gm/dl Hct 28.2 L (35.5-45.6) % MCV 80 L (84-94) fl MCH 26 L (28-32) pg Snyder % (Auto) 9.2 H (0.0-7.3) % Seg Neutrophils % 73.5 H (40.0-70.0) % D-Dimer (0-234) ng/mlDDU Sodium 135 L (137-145) mmol/L Chloride 97.0 L (98-107) mmol/L Creatinine 0.7 L D (0.8-1.5) mg/dL Glucose 527 H* (75-100) mg/dL POC Glucose (70-105) Hemoglobin A1c (4-6) % AST (5-40) units/L ALT (7-56) units/L Alkaline Phosphatase (35-129) units/L NT-Pro-B Natriuret Pep 4589 H (0-900) pg/mL Total Protein (6.3-8.2) g/dL Albumin (3.9-5) g/dL LDL Cholesterol Direct (50-130) mg/dL HDL Cholesterol (40-59) mg/dL 06/17/17 06/17/17 06/17/17 Range/Units 16:18 22:53 23:45 RBC (3.65-5.03) M/mm3 Hgb (11.8-15.2) gm/dl Hct (35.5-45.6) % MCV (84-94) fl MCH (28-32) pg Snyder % (Auto) (0.0-7.3) % Seg Neutrophils % (40.0-70.0) % D-Dimer 284.17 H (0-234) ng/mlDDU Sodium (137-145) mmol/L Chloride (98-107) mmol/L Creatinine (0.8-1.5) mg/dL Glucose (75-100) mg/dL POC Glucose (70-105) Hemoglobin A1c 15.7 H (4-6) % AST 173 H (5-40) units/L ALT 185 H (7-56) units/L Alkaline Phosphatase 189 H (35-129) units/L NT-Pro-B Natriuret Pep (0-900) pg/mL Total Protein 6.0 L (6.3-8.2) g/dL Albumin 3.4 L (3.9-5) g/dL LDL Cholesterol Direct (50-130) mg/dL HDL Cholesterol (40-59) mg/dL 06/17/17 06/18/17 06/18/17 Range/Units 23:45 02:52 06:34 RBC (3.65-5.03) M/mm3 Hgb (11.8-15.2) gm/dl Hct (35.5-45.6) % MCV (84-94) fl MCH (28-32) pg Snyder % (Auto) (0.0-7.3) % Seg Neutrophils % (40.0-70.0) % D-Dimer (0-234) ng/mlDDU Sodium (137-145) mmol/L Chloride (98-107) mmol/L Creatinine (0.8-1.5) mg/dL Glucose (75-100) mg/dL POC Glucose 468 H > 500 H (70-105) Hemoglobin A1c (4-6) % AST (5-40) units/L ALT (7-56) units/L Alkaline Phosphatase (35-129) units/L NT-Pro-B Natriuret Pep (0-900) pg/mL Total Protein (6.3-8.2) g/dL Albumin (3.9-5) g/dL LDL Cholesterol Direct 42 L (50-130) mg/dL HDL Cholesterol 93 H (40-59) mg/dL 06/18/17 Range/Units 08:18 RBC (3.65-5.03) M/mm3 Hgb (11.8-15.2) gm/dl Hct (35.5-45.6) % MCV (84-94) fl MCH (28-32) pg Snyder % (Auto) (0.0-7.3) % Seg Neutrophils % (40.0-70.0) % D-Dimer (0-234) ng/mlDDU Sodium (137-145) mmol/L Chloride (98-107) mmol/L Creatinine (0.8-1.5) mg/dL Glucose (75-100) mg/dL POC Glucose 427 H (70-105) Hemoglobin A1c (4-6) % AST (5-40) units/L ALT (7-56) units/L Alkaline Phosphatase (35-129) units/L NT-Pro-B Natriuret Pep (0-900) pg/mL Total Protein (6.3-8.2) g/dL Albumin (3.9-5) g/dL LDL Cholesterol Direct (50-130) mg/dL HDL Cholesterol (40-59) mg/dL
[2017-06-18 09:05] LABS: Basophils % (Auto) 0.4 % (0.0-1.8); Eosinophils % (Auto) 0.5 % (0.0-4.3); Hematocrit 30.9 % (35.5-45.6); Hemoglobin 9.6 gm/dl (11.8-15.2); Lymphocytes # (Auto) 1.9 K/mm3 (1.2-5.4); Lymphocytes % (Auto) 22.4 % (13.4-35.0); Mean Corpuscular HGB Conc 31 % (32-34); Mean Corpuscular Volume 82 fl (84-94); Monocytes # (Auto) 0.8 K/mm3 (0.0-0.8); Monocytes % (Auto) 10.1 % (0.0-7.3); Platelet Count 180 K/mm3 (140-440); Red Blood Count 3.76 M/mm3 (3.65-5.03); Red Cell Distribution Width 14.7 % (13.2-15.2)
[2017-06-18 09:07] LABS: Mean Corpuscular Hemoglobin 26 pg (28-32)
[2017-06-18 09:26] LABS: Alanine Aminotransferase 173 units/L (7-56); Albumin 2.9 g/dL (3.9-5); BUN/Creatinine Ratio 18; Blood Urea Nitrogen 9 mg/dL (9-20); Calcium 8.5 mg/dL (8.4-10.2); Hemolysis Index 4
[2017-06-18] MEDS: COLACE PO SCH ×2 (09:27→22:32)
[2017-06-18] MEDS: PEPCID PO SCH ×2 (09:27→22:32)
[2017-06-18] MEDS: K-DUR PO SCH ×2 (09:28→22:32)
[2017-06-18] MEDS: LOVENOX SUB-Q SCH (09:28)
[2017-06-18] MEDS: ZESTRIL PO SCH (09:30)
[2017-06-18] MEDS: COREG PO SCH ×2 (09:31→22:38)
[2017-06-18] MEDS ORDERED: ROCEPHIN/NS 1 GM/50 ML 1 GM/50 ML BAG IV SCH (10:00)
[2017-06-18] MEDS ORDERED: ZITHROMAX 500 MG in NACL 0.9% 250ML 250 ML IV SCH (22:00)
[2017-06-18] MEDS: cefTRIAXone 1 GM in NACL 0.9% 20 ML IV SCH (22:31)
[2017-06-19] MEDS: AMBIEN PO PRN (00:57)
[2017-06-19] MEDS: DUONEB *Not for PRN Use IH SCH ×4 (01:33→20:19)
[2017-06-19] MEDS: LASIX IV SCH ×2 (05:53→18:13)
[2017-06-19 06:31] LABS: Basophils % (Auto) 0.3 % (0.0-1.8); Eosinophils # (Auto) 0.1 K/mm3 (0.0-0.4); Eosinophils % (Auto) 0.7 % (0.0-4.3); Hemoglobin 8.7 gm/dl (11.8-15.2); Lymphocytes # (Auto) 2.2 K/mm3 (1.2-5.4); Lymphocytes % (Auto) 27.2 % (13.4-35.0); Mean Corpuscular HGB Conc 32 % (32-34); Mean Corpuscular Volume 80 fl (84-94); Monocytes # (Auto) 0.9 K/mm3 (0.0-0.8); Monocytes % (Auto) 10.4 % (0.0-7.3); Platelet Count 176 K/mm3 (140-440); Red Blood Count 3.36 M/mm3 (3.65-5.03); Red Cell Distribution Width 14.4 % (13.2-15.2)
[2017-06-19 06:32] LABS: Mean Corpuscular Hemoglobin 26 pg (28-32)
[2017-06-19 07:03] LABS: Alanine Aminotransferase 144 units/L (7-56); BUN/Creatinine Ratio 12; Blood Urea Nitrogen 6 mg/dL (9-20); Calcium 8.6 mg/dL (8.4-10.2); Hemolysis Index 4
[2017-06-19] MEDS: NOVOLOG SUB-Q SCH ×6 (08:16→22:55)
[2017-06-19] MEDS: LEVEMIR SUB-Q SCH (08:16)
[2017-06-19] MEDS: PEPCID PO SCH ×2 (09:51→22:45)
[2017-06-19] MEDS: COREG PO SCH ×2 (09:51→22:43)
[2017-06-19] MEDS: K-DUR PO SCH ×2 (09:51→22:45)
[2017-06-19] MEDS: COLACE PO SCH ×2 (09:51→22:45)
[2017-06-19] MEDS: ZESTRIL PO SCH (09:52)
[2017-06-19] MEDS: LOVENOX SUB-Q SCH (09:53)
[2017-06-19] MEDS: ZITHROMAX PO SCH (11:38)
--- NOTE | 2017-06-19 11:48 | Progress Note ---
Assessment and Plan 56-year-old male male history of recent diagnosis of heart failure history of EtOH and tobacco use presented for evaluation of intermittent chest pain and shortness of breath. Come in via ambulate.Also c/o edema cough orthopne and PND. Denies any fever, lexican this week neg for ischemia, EF of 27% with valvular heart dz. Also has hx pancreatitis and dm * Acute on chronic Systolic HF - strict input and output charts, Daily weight, beta kali and ACEI. ECHO of 06/13/2017 showed EF of 25-30% * Bilateral interstitial pneumonia - more predominant in the left upper lobe left greater than right - started empirically on antibiotics Rocephin and azithromycin- * Bilateral pleural effusion likely parapneumonic left greater than right * Dilated Pancreatic duct per CT abdomen and pelvis follow-up. No abdominal pain. Lipase is normal. * Anemia likely chronic anemia studies as ordered follow-up results treat appropriately as indicated- * Chest pain - likely due to underlying acute CHF exacerbation, troponin 3 negative, monitor on cardiac telemetry. S/p lexiscan MPI stress test 06/15/17. which was negative for ischemia, EF 27%. * Diabetes uncontrolled: Hhemoglobin A1c 15.7% monitor blood sugars with Accu- Cheks every before meals daily at bedtime and cover with sliding scale insulin. * Hypertension controlled - continue home meds monitor vital signs- * Chronic pancreatitis - pain management. Lipase normal. ETOH cessation counselling done * Severe MR / mild to mod TR * H/o ETOH abuse - patient quit 1 month prior to his previous admission Plan - Continue IV Lasix, beta kali, LINDA inhibitor, aspirin Monitor I's and O's, daily weights iv antibiotic with Azithromy and Rocephin. F/u with blood and sputum Cx GI prophylaxis DVT prophylaxis previous Echo reviewed - EF 25-30%, grade 3 LV diastolic dysfunction, LA dilated , mild AR, severe MR, mild to mod TR, RVSP 40mmHg, large bilateral pleural effusions. [place] on Fluid ristriction to 1.5 L/day done Subjective Date of service: 06/19/17 Principal diagnosis: chronic systolic heart failure, pneumonia Interval history: Still having Shortness of breath and orthopnea. No chest pain. Reviewed Laboratory and radiological data. Objective - Exam Narrative Exam: Constitutional: Well-nourished well-developed. In no distress Head: Normocephalic atraumatic Eyes: Pupils are equal round and reactive to light Nose: No enlarged turbinates, no septal deviation. Mouth: Moist mucous membranes. Neck: Supple no thyromegaly. No bruit. No JVD Heart: Regular rate and rhythm, S1-S2 with S3. No rubs murmurs or gallop Lungs: Clear to auscultation bilaterally with few rales Abdomen: Soft, nontender. Bowel sound are present. Extremities: No edema no cyanosis and no clubbing. Neuro: Alert oriented Oriented x3. No focal sensory or motor deficit. Skin: No rashes no hyperemic spots Psychiatry: Euthymic. Calm. - Constitutional Vitals: Vital Signs - 12hr 06/19/17 06/19/17 06/19/17 01:28 01:38 07:42 Temperature 98.6 F Pulse Rate 108 H Pulse Rate [ 101 H 99 H Anterior Bilateral Throughout] Respiratory 18 Rate Respiratory 18 20 Rate [Anterior Bilateral Throughout] Blood Pressure 121/89 O2 Sat by Pulse 98 Oximetry 06/19/17 06/19/17 09:51 09:52 Temperature Pulse Rate 108 H 108 H Pulse Rate [ Anterior Bilateral Throughout] Respiratory Rate Respiratory Rate [Anterior Bilateral Throughout] Blood Pressure 121/89 121/89 O2 Sat by Pulse Oximetry - Labs CBC & Chem 7: 06/19/17 05:31 06/19/17 05:31 Labs: Abnormal lab results 06/18/17 06/18/17 06/18/17 Range/Units 12:38 17:25 22:46 RBC (3.65-5.03) M/mm3 Hgb (11.8-15.2) gm/dl Hct (35.5-45.6) % MCV (84-94) fl MCH (28-32) pg [place] % (Auto) (0.0-7.3) % [place] # (0.0-0.8) K/mm3 Sodium (137-145) mmol/L Chloride (98-107) mmol/L BUN (9-20) mg/dL Creatinine (0.8-1.5) mg/dL Glucose (75-100) mg/dL POC Glucose 383 H 406 H > 500 H (70-105) AST (5-40) units/L ALT (7-56) units/L Alkaline Phosphatase (35-129) units/L Total Protein (6.3-8.2) g/dL Albumin (3.9-5) g/dL 06/19/17 06/19/17 06/19/17 Range/Units 01:07 02:08 05:31 RBC 3.36 L (3.65-5.03) M/mm3 Hgb 8.7 L (11.8-15.2) gm/dl Hct 27.0 L (35.5-45.6) % MCV 80 L (84-94) fl MCH 26 L (28-32) pg [place] % (Auto) 10.4 H (0.0-7.3) % [place] # 0.9 H (0.0-0.8) K/mm3 Sodium (137-145) mmol/L Chloride (98-107) mmol/L BUN (9-20) mg/dL Creatinine (0.8-1.5) mg/dL Glucose 389 H (75-100) mg/dL POC Glucose 434 H (70-105) AST (5-40) units/L ALT (7-56) units/L Alkaline Phosphatase (35-129) units/L Total Protein (6.3-8.2) g/dL Albumin (3.9-5) g/dL 06/19/17 06/19/17 06/19/17 Range/Units 05:31 06:36 11:14 RBC (3.65-5.03) M/mm3 Hgb (11.8-15.2) gm/dl Hct (35.5-45.6) % MCV (84-94) fl MCH (28-32) pg [place] % (Auto) (0.0-7.3) % [place] # (0.0-0.8) K/mm3 Sodium 135 L (137-145) mmol/L Chloride 94.2 L (98-107) mmol/L BUN 6 L (9-20) mg/dL Creatinine 0.5 L (0.8-1.5) mg/dL Glucose 240 H (75-100) mg/dL POC Glucose 361 H 438 H (70-105) AST 86 H (5-40) units/L ALT 144 H (7-56) units/L Alkaline Phosphatase 159 H (35-129) units/L Total Protein 6.2 L (6.3-8.2) g/dL Albumin 3.0 L (3.9-5) g/dL
[2017-06-19] MEDS: NACL 0.9% 1000 ML 1,000 ML IV SCH ×2 (13:28→22:48)
[2017-06-19] MEDS: cefTRIAXone 1 GM in NACL 0.9% 20 ML IV SCH (22:43)
[2017-06-20] MEDS: AMBIEN PO PRN (00:07)
[2017-06-20] MEDS: DUONEB *Not for PRN Use IH SCH ×4 (03:46→19:23)
[2017-06-20] MEDS: LASIX IV SCH ×2 (06:18→18:41)
[2017-06-20 06:37] LABS: Alanine Aminotransferase 215 units/L (7-56); Albumin 3.3 g/dL (3.9-5); BUN/Creatinine Ratio 14; Blood Urea Nitrogen 7 mg/dL (9-20); Calcium 8.8 mg/dL (8.4-10.2); Hemolysis Index 0
[2017-06-20 06:41] LABS: Basophils % (Auto) 0.6 % (0.0-1.8); Eosinophils # (Auto) 0.1 K/mm3 (0.0-0.4); Eosinophils % (Auto) 0.8 % (0.0-4.3); Hematocrit 27.6 % (35.5-45.6); Lymphocytes # (Auto) 2.6 K/mm3 (1.2-5.4); Lymphocytes % (Auto) 38.9 % (13.4-35.0); Mean Corpuscular HGB Conc 33 % (32-34); Mean Corpuscular Hemoglobin 26 pg (28-32); Mean Corpuscular Volume 81 fl (84-94); Monocytes # (Auto) 0.6 K/mm3 (0.0-0.8); Monocytes % (Auto) 9.3 % (0.0-7.3); Platelet Count 194 K/mm3 (140-440); Red Cell Distribution Width 14.5 % (13.2-15.2)
[2017-06-20 06:47] LABS: INR 0.84 (0.87-1.13)
[2017-06-20] MEDS: LEVEMIR SUB-Q SCH (08:00)
[2017-06-20] MEDS: NOVOLOG SUB-Q SCH ×8 (08:13→22:18)
--- NOTE | 2017-06-20 08:29 | Progress Note ---
Assessment and Plan Assessment and plan: 56-year-old male male history of recent diagnosis of heart failure history of EtOH and tobacco use presented for evaluation of intermittent chest pain and shortness of breath. Come in via ambulate.Also c/o edema cough orthopne and PND. Denies any fever, lexican this week neg for ischemia, EF of 27% with valvular heart dz. Also has hx pancreatitis and dm Acute on chronic combined Systolic and diastolic HF * Strict input and output charts, Daily weight, beta kali and ACEI. ECHO of showed EF of 25-30% * Cardiology consult pending. * Patient readmitted within 24 hrs, did not pickle processor medication on discharge for lasix, ?compliance * Severe mitral regurgitation. * Fluid restriction to 1.5 liters per day Bilateral interstitial pneumonia * more predominant in the left upper lobe left greater than right - started empirically on antibiotics Rocephin and azithromycin * Cultures are revealed this time we'll continue to monitor Bilateral pleural effusion likely parapneumonic left greater than right * Plan for diagnositic Thoracentesis today * Pulmonary consult Acute on Chronic Hypoxic Respiratory failure * Last admission was on high flow oxygen, now down to 3 liters on discharge * Nebs, LABA, CARINA. Tachycardia may preclude use of abluterol, will monitor. Dilated Pancreatic duct per CT abdomen and pelvis * follow-up outpatient. No abdominal pain. Lipase is normal. GI follow up empiric and screening test needed Transaminitis * We'll check viral serologies for viral hepatitis. 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 S/p lexiscan MPI stress test 06/15/17. which was negative for ischemia, EF 27%. Await cardiology input Tachycardia * Likely due to underlying disease. will monitor. Diabetes uncontrolled: * Hemoglobin A1c 15.7% monitor blood sugars with Accu-Cheks every before meals daily at bedtime and cover with sliding scale insulin. Hypertension controlled * continue home meds monitor vital signs- Chronic pancreatitis - pain management. Lipase normal. * ETOH cessation counselling done. 50 minutes spent on counseling. Per patient quite a 3 months ago Severe MR / mild to mod TR-cardiology consult. H/o ETOH abuse - patient quit 1 month prior to his previous admission DVT and GI prophylaxis I was advised by case management and the patient is not in network with hospital. Call placed to [facility] transfer line at [phone] awaiting callback. Pt likely to be discharged tomorrow and follow up outpatient. History Interval history: patient seen and examined in no acute distress, reports improvement in shortness of breath. Awaiting diagnostic thoracentesis. still with tachycardia. Hospitalist Physical - Physical exam Narrative exam: VITAL SIGNS: Reviewed. GENERAL: The patient appeared well nourished and normally developed. Vital signs as documented. HEAD: No signs of head trauma. EYES: Pupils are equal. Extraocular motions intact. EARS: Hearing grossly intact. MOUTH: Oropharynx is normal. NECK: No adenopathy, no JVD. CHEST: Chest with clear breath sounds bilaterally. No wheezes, rales, or rhonchi. CARDIAC: Tachycardia S1 and S2, without murmurs, gallops, or rubs. VASCULAR: Trace bilateral Plata. Edema. Peripheral pulses normal and equal in all extremities. ABDOMEN: Soft, without detectable tenderness. No sign of distention. No rebound or guarding, and no masses palpated. Bowel Sounds normal. MUSCULOSKELETAL: Good range of motion of all major joints. Extremities without clubbing, cyanosis. Trace bilateral Pitting edema. NEUROLOGIC EXAM: Alert and oriented x 3. No focal sensory or strength deficits. Speech normal. Follows commands. PSYCHIATRIC: Mood normal. SKIN: No rash or lesions. - Constitutional Vitals: Temp Pulse Resp BP Pulse Ox 98.1 F 108 H 16 118/84 96 06/19/17 15:13 06/19/17 22:43 06/19/17 20:29 06/19/17 22:43 06/19/17 20:30 General appearance: Present: no acute distress, well-nourished Results - Labs CBC & Chem 7: 06/20/17 06:05 06/20/17 06:05 Labs: Laboratory Last Values WBC 6.8 K/mm3 (4.5-11.0) 06/20/17 06:05 RBC 3.40 M/mm3 (3.65-5.03) L 06/20/17 06:05 Hgb 9.0 gm/dl (11.8-15.2) L 06/20/17 06:05 Hct 27.6 % (35.5-45.6) L 06/20/17 06:05 MCV 81 fl (84-94) L 06/20/17 06:05 MCH 26 pg (28-32) L 06/20/17 06:05 MCHC 33 % (32-34) 06/20/17 06:05 RDW 14.5 % (13.2-15.2) 06/20/17 06:05 Plt Count 194 K/mm3 (140-440) 06/20/17 06:05 Lymph % (Auto) 38.9 % (13.4-35.0) H 06/20/17 06:05 Rains % (Auto) 9.3 % (0.0-7.3) H 06/20/17 06:05 Eos % (Auto) 0.8 % (0.0-4.3) 06/20/17 06:05 Baso % (Auto) 0.6 % (0.0-1.8) 06/20/17 06:05 Lymph # 2.6 K/mm3 (1.2-5.4) 06/20/17 06:05 Rains # 0.6 K/mm3 (0.0-0.8) 06/20/17 06:05 Eos # 0.1 K/mm3 (0.0-0.4) 06/20/17 06:05 Baso # 0.0 K/mm3 (0.0-0.1) 06/20/17 06:05 Seg Neutrophils % 50.4 % (40.0-70.0) 06/20/17 06:05 Seg Neutrophils # 3.4 K/mm3 (1.8-7.7) 06/20/17 06:05 PT 11.9 Sec. (12.2-14.9) L 06/20/17 06:05 INR 0.84 (0.87-1.13) L 06/20/17 06:05 D-Dimer 284.17 ng/mlDDU (0-234) H 06/17/17 16:18 Sodium 138 mmol/L (137-145) 06/20/17 06:05 Potassium 4.7 mmol/L (3.6-5.0) D 06/20/17 06:05 Chloride 96.7 mmol/L (98-107) L 06/20/17 06:05 Carbon Dioxide 29 mmol/L (22-30) 06/20/17 06:05 Anion Gap 17 mmol/L 06/20/17 06:05 BUN 7 mg/dL (9-20) L 06/20/17 06:05 Creatinine 0.5 mg/dL (0.8-1.5) L 06/20/17 06:05 Estimated GFR > 60 ml/min 06/20/17 06:05 BUN/Creatinine Ratio 14 % 06/20/17 06:05 Glucose 91 mg/dL (75-100) 06/20/17 06:05 POC Glucose 97 (70-105) 06/20/17 06:41 Hemoglobin A1c 15.7 % (4-6) H 06/17/17 23:45 Calcium 8.8 mg/dL (8.4-10.2) 06/20/17 06:05 Phosphorus 2.20 mg/dL (2.5-4.5) L 06/18/17 08:37 Magnesium 2.00 mg/dL (1.7-2.3) 06/18/17 08:37 Total Bilirubin 0.20 mg/dL (0.1-1.2) 06/20/17 06:05 Direct Bilirubin < 0.2 mg/dL (0-0.2) 06/17/17 22:53 Indirect Bilirubin 0.0 mg/dL 06/17/17 22:53 AST 218 units/L (5-40) H 06/20/17 06:05 ALT 215 units/L (7-56) H 06/20/17 06:05 Alkaline Phosphatase 203 units/L (35-129) H 06/20/17 06:05 Troponin T 0.010 ng/mL (0.00-0.029) 06/20/17 06:05 NT-Pro-B Natriuret Pep 4589 pg/mL (0-900) H 06/17/17 15:05 Total Protein 6.4 g/dL (6.3-8.2) 06/20/17 06:05 Albumin 3.3 g/dL (3.9-5) L 06/20/17 06:05 Albumin/Globulin Ratio 1.1 % 06/20/17 06:05 Triglycerides 105 mg/dL (2-149) 06/17/17 23:45 Cholesterol 156 mg/dL (50-199) 06/17/17 23:45 LDL Cholesterol Direct 42 mg/dL (50-130) L 06/17/17 23:45 HDL Cholesterol 93 mg/dL (40-59) H 06/17/17 23:45 Cholesterol/HDL Ratio 1.67 % 06/17/17 23:45 Lipase 22 units/L (13-60) 06/17/17 22:53 - Imaging and Cardiology CT scan - chest: image reviewed (pleural effusion bilater left greater than right)
--- NOTE | 2017-06-20 10:55 | Ultrasound Report ---
ULTRASOUND THORACENTESIS History: Left pleural effusion. Description of procedure: Informed consent was obtained. Sterile technique was utilized. 1% lidocaine for skin anesthesia. Using ultrasound guidance, a 5 [place] centesis needle was advanced into the left pleural space. There was spontaneous return of clear yellow fluid. 900 cc of fluid was aspirated. 1-0 cc of fluid was sent to lab for analysis. No complications. Impression: Successful ultrasound-guided left thoracentesis.
--- NOTE | 2017-06-20 11:00 | Procedure Note ---
Date of procedure: 06/20/17 Pre-op diagnosis: left pleural effusion Post-op diagnosis: same Procedure: US thoracentesis Anesthesia: local Surgeon: [facility] Estimated blood loss: none Pathology: list (120cc) Specimen disposition: to lab Condition: stable Disposition: floor
--- NOTE | 2017-06-20 11:19 | Consultation ---
History of Present Illness Consult date: 06/20/17 Requesting physician: DHAVAL ALAS Reason for consult: pleural effusion History of present illness: PULMONARY/CCM CONSULT NOTE (Full dictation # [id number]) Please see dictated notes for full details Medications and Allergies Allergies Allergy/AdvReac Type Severity Reaction Status Date / Time No Known Allergies Allergy Verified 11/12/15 06:05 Home Medications Medication Instructions Recorded Confirmed Last Taken Type Acetaminophen [Acetaminophen TAB] 325 mg PO Q4H PRN #30 tablet 06/16/17 Unknown Rx Aspirin [Aspirin BABY CHEW TAB] 81 mg PO QDAY #30 tab.chew 06/16/17 Unknown Rx Carvedilol [Coreg] 3.125 mg PO BID #60 tablet 06/16/17 Unknown Rx Furosemide [Lasix TAB] 40 mg PO QDAY #30 tablet 06/16/17 Unknown Rx Insulin Detemir [Levemir] 20 units SUB-Q QAMDIAB #30 units 06/16/17 Unknown Rx Lisinopril [Zestril TAB] 2.5 mg PO QDAY #30 tablet 06/16/17 Unknown Rx oxyCODONE /ACETAMINOPHEN [Percocet 1 tab PO Q6H PRN #20 tablet 06/16/17 Unknown Rx 5/325 mg] Active Meds: Active Medications Acetaminophen (Tylenol) 650 mg PO Q4H PRN PRN Reason: Pain MILD(1-3)/Fever >100.5/GONSALES Albuterol (Proventil) 2.5 mg IH Q4HRT PRN PRN Reason: Shortness Of Breath Albuterol/Ipratropium (Duoneb *Not For Prn Use*) 1 ampul IH TIDRT [facility] Last Admin: 06/20/17 07:22 Dose: 1 ampul Alprazolam (Xanax) 0.125 mg PO Q8H PRN PRN Reason: Anxiety Azithromycin (Zithromax) 500 mg PO QDAY [facility] Last Admin: 06/19/17 11:38 Dose: 500 mg Bisacodyl (Dulcolax) 10 mg [place] QDAY PRN PRN Reason: Constipation unrelieved by MOM Carvedilol (Coreg) 3.125 mg PO BID [facility] Last Admin: 06/19/17 22:43 Dose: 3.125 mg Dextrose (D50w (25gm) Syringe) 50 ml IV PRN PRN PRN Reason: Hypoglycemia Docusate Sodium (Colace) 100 mg PO BID [facility] Last Admin: 06/19/17 22:45 Dose: 100 mg Enoxaparin Sodium (Lovenox) 40 mg SUB-Q QDAY [facility] Last Admin: 06/19/17 09:53 Dose: 40 mg Famotidine (Pepcid) 20 mg PO BID [facility] Last Admin: 06/19/17 22:45 Dose: 20 mg Furosemide (Lasix) 40 mg IV BID@0600,1800 [facility] Last Admin: 06/20/17 06:18 Dose: 40 mg Ceftriaxone Sodium 1 gm/ (Sodium Chloride) 20 mls @ 20 mls/10 min IV Q24H [facility] Last Admin: 06/19/17 22:43 Dose: 20 mls/10 min Insulin Aspart (Novolog) 0 units SUB-Q ACHS [facility] PRN Reason: Protocol Last Admin: 06/20/17 08:13 Dose: Not Given Insulin Aspart (Novolog) 2 units SUB-Q ACHS [facility] Last Admin: 06/20/17 08:14 Dose: Not Given Insulin Detemir (Levemir) 25 units SUB-Q QAMDIAB [facility] Lisinopril (Zestril) 2.5 mg PO QDAY [facility] Last Admin: 06/19/17 09:52 Dose: 2.5 mg Magnesium Hydroxide (Milk Of Magnesia) 30 ml PO Q4H PRN PRN Reason: Constipation Morphine Sulfate (Morphine) 2 mg IV Q4H PRN PRN Reason: Pain, Moderate (4-6) Naloxone HCl (Narcan 0.4 Mg/1 Ml) 0.1 mg IV Q2MIN PRN PRN Reason: Res Rate </= 8 or 02 SAT < 92% Nitroglycerin (Nitrostat) 0.4 mg SL .Q5MIN PRN PRN Reason: Chest Pain Ondansetron HCl (Zofran) 4 mg IV Q8H PRN PRN Reason: N/V unrelieved by Reglan Oxycodone/Acetaminophen (Percocet 5/325) 1 tab PO Q6H PRN PRN Reason: Pain, Moderate (4-6) Potassium Chloride (K-Dur) 40 meq PO BID [facility] Last Admin: 06/19/17 22:45 Dose: 40 meq Zolpidem Tartrate (Ambien) 5 mg PO QHS PRN PRN Reason: Insomnia Last Admin: 06/20/17 00:07 Dose: 5 mg Physical Examination Vital signs: Vital Signs Temp Pulse Resp BP Pulse Ox 98.7 F 119 H 18 143/95 97 06/17/17 14:52 06/17/17 14:52 06/17/17 14:52 06/17/17 14:52 06/17/17 14:52 Results - Laboratory Findings CBC and BMP: 06/20/17 06:05 06/20/17 06:05 PT/INR, D-dimer PT 11.9 Sec. (12.2-14.9) L 06/20/17 06:05 INR 0.84 (0.87-1.13) L 06/20/17 06:05 D-Dimer 284.17 ng/mlDDU (0-234) H 06/17/17 16:18 Abnormal lab findings: Abnormal Labs 06/17/17 06/17/17 06/17/17 15:05 15:05 15:05 RBC 3.52 L Hgb 9.2 L Hct 28.2 L MCV 80 L MCH 26 L MCHC Lymph % (Auto) Gaines % (Auto) 9.2 H Gaines # Seg Neutrophils % 73.5 H PT INR D-Dimer Sodium 135 L Potassium Chloride 97.0 L BUN Creatinine 0.7 L D Glucose 527 H* POC Glucose Hemoglobin A1c Phosphorus AST ALT Alkaline Phosphatase NT-Pro-B Natriuret Pep 4589 H Total Protein Albumin LDL Cholesterol Direct HDL Cholesterol 06/17/17 06/17/17 06/17/17 16:18 22:53 23:45 RBC Hgb Hct MCV MCH MCHC Lymph % (Auto) Gaines % (Auto) Gaines # Seg Neutrophils % PT INR D-Dimer 284.17 H Sodium Potassium Chloride BUN Creatinine Glucose POC Glucose Hemoglobin A1c 15.7 H Phosphorus AST 173 H ALT 185 H Alkaline Phosphatase 189 H NT-Pro-B Natriuret Pep Total Protein 6.0 L Albumin 3.4 L LDL Cholesterol Direct HDL Cholesterol 06/17/17 06/18/17 06/18/17 23:45 02:52 06:34 RBC Hgb Hct MCV MCH MCHC Lymph % (Auto) Gaines % (Auto) Gaines # Seg Neutrophils % PT INR D-Dimer Sodium Potassium Chloride BUN Creatinine Glucose POC Glucose 468 H > 500 H Hemoglobin A1c Phosphorus AST ALT Alkaline Phosphatase NT-Pro-B Natriuret Pep Total Protein Albumin LDL Cholesterol Direct 42 L HDL Cholesterol 93 H 06/18/17 06/18/17 06/18/17 08:18 08:37 08:37 RBC Hgb 9.6 L Hct 30.9 L MCV 82 L MCH 26 L MCHC 31 L Lymph % (Auto) Gaines % (Auto) 10.1 H Gaines # Seg Neutrophils % PT INR D-Dimer Sodium 135 L Potassium 3.5 L Chloride 93.2 L BUN Creatinine 0.5 L Glucose 389 H POC Glucose 427 H Hemoglobin A1c Phosphorus 2.20 L AST 137 H ALT 173 H Alkaline Phosphatase 178 H NT-Pro-B Natriuret Pep Total Protein Albumin 2.9 L LDL Cholesterol Direct HDL Cholesterol 06/18/17 06/18/17 06/18/17 12:38 17:25 22:46 RBC Hgb Hct MCV MCH MCHC Lymph % (Auto) Gaines % (Auto) Gaines # Seg Neutrophils % PT INR D-Dimer Sodium Potassium Chloride BUN Creatinine Glucose POC Glucose 383 H 406 H > 500 H Hemoglobin A1c Phosphorus AST ALT Alkaline Phosphatase NT-Pro-B Natriuret Pep Total Protein Albumin LDL Cholesterol Direct HDL Cholesterol 06/19/17 06/19/17 06/19/17 01:07 02:08 05:31 RBC 3.36 L Hgb 8.7 L Hct 27.0 L MCV 80 L MCH 26 L MCHC Lymph % (Auto) Gaines % (Auto) 10.4 H Gaines # 0.9 H Seg Neutrophils % PT INR D-Dimer Sodium Potassium Chloride BUN Creatinine Glucose 389 H POC Glucose 434 H Hemoglobin A1c Phosphorus AST ALT Alkaline Phosphatase NT-Pro-B Natriuret Pep Total Protein Albumin LDL Cholesterol Direct HDL Cholesterol 06/19/17 06/19/17 06/19/17 05:31 06:36 11:14 RBC Hgb Hct MCV MCH MCHC Lymph % (Auto) Gaines % (Auto) Gaines # Seg Neutrophils % PT INR D-Dimer Sodium 135 L Potassium Chloride 94.2 L BUN 6 L Creatinine 0.5 L Glucose 240 H POC Glucose 361 H 438 H Hemoglobin A1c Phosphorus AST 86 H ALT 144 H Alkaline Phosphatase 159 H NT-Pro-B Natriuret Pep Total Protein 6.2 L Albumin 3.0 L LDL Cholesterol Direct HDL Cholesterol 06/19/17 06/19/17 06/20/17 16:29 22:53 06:05 RBC 3.40 L Hgb 9.0 L Hct 27.6 L MCV 81 L MCH 26 L MCHC Lymph % (Auto) 38.9 H Gaines % (Auto) 9.3 H Gaines # Seg Neutrophils % PT INR D-Dimer Sodium Potassium Chloride BUN Creatinine Glucose POC Glucose 107 H 270 H Hemoglobin A1c Phosphorus AST ALT Alkaline Phosphatase NT-Pro-B Natriuret Pep Total Protein Albumin LDL Cholesterol Direct HDL Cholesterol 06/20/17 06/20/17 06:05 06:05 RBC Hgb Hct MCV MCH MCHC Lymph % (Auto) Gaines % (Auto) Gaines # Seg Neutrophils % PT 11.9 L INR 0.84 L D-Dimer Sodium Potassium Chloride 96.7 L BUN 7 L Creatinine 0.5 L Glucose POC Glucose Hemoglobin A1c Phosphorus AST 218 H ALT 215 H Alkaline Phosphatase 203 H NT-Pro-B Natriuret Pep Total Protein Albumin 3.3 L LDL Cholesterol Direct HDL Cholesterol
[2017-06-20 11:50] LABS: Total Cells Counted 100 /mm3
[2017-06-20 12:45] LABS: Hepatitis A Antibody IgM Non-Reactive (NonReactive); Hepatitis B Core IgM Non-Reactive (NonReactive); Hepatitis B Surface Antigen Non-Reactive (Negative); Hepatitis C Virus Antibody Non-Reactive (NonReactive)
[2017-06-20] MEDS: ZITHROMAX PO SCH (13:14)
[2017-06-20] MEDS: LOVENOX SUB-Q SCH (13:15)
[2017-06-20] MEDS: PEPCID PO SCH ×2 (13:15→22:19)
[2017-06-20] MEDS: COLACE PO SCH ×3 (13:15→21:21)
[2017-06-20] MEDS: ZESTRIL PO SCH ×2 (13:16→13:19)
[2017-06-20] MEDS: K-DUR PO SCH ×2 (13:17→21:11)
[2017-06-20] MEDS: COREG PO SCH ×3 (13:17→21:22)
--- NOTE | 2017-06-20 13:33 | XRay Report ---
AP CHEST: HISTORY: Short of breath, left pleural effusion Recent ultrasound-guided left thoracentesis was performed. Near-complete evacuation of the left pleural effusion is demonstrated. No pneumothorax. A small to medium right pneumothorax has increased slightly since 06/17/17. Cardiomegaly and central pulmonary venous congestion are identified. IMPRESSION: Decreased left pleural effusion. No evidence for pneumothorax. CHF.
--- NOTE | 2017-06-20 14:10 | Consultation ---
History of Present Illness Consult date: 06/20/17 Requesting physician: JOSE ROBERTO JORDAN Consult reason: congestive heart failure History of present illness: The pt is a 56 YO male with a past medical history significant for HTN, DM, combined systolic and diastolic HF, NICMP, severe MR, mild to mod TR, pancreatitis, ETOH abuse. He recently established cardiology care with our practice on [facility] admission. He was discharged from [facility] on 06/16/2017 following eval/treatment for heart failure, uncontrolled DM, suspected PNA. During that hospitalization, pt was noted to have CMP with EF 25-30% with restrictive filling/grade 3 diastolic dysfunction. He underwent stress testing which was negative for ischemia, EF 27%. He reports that following hospital discharge, he went home and immediately noted progressively worsening SOB, orthopnea and BLE swelling and thus he returned to [facility]. Following admission, pt was noted to have left pleural effusion and underwent US guided thoracentesis this AM. On evaluation, he denies any chest pain, palpitations, n/v, diaphoresis, dizziness or syncope. Past History Past Medical History: diabetes, heart failure, hypertension Social history: alcohol abuse Medications and Allergies Allergies Allergy/AdvReac Type Severity Reaction Status Date / Time No Known Allergies Allergy Verified 11/12/15 06:05 Home Medications Medication Instructions Recorded Confirmed Last Taken Type Acetaminophen [Acetaminophen TAB] 325 mg PO Q4H PRN #30 tablet 06/16/17 Unknown Rx Aspirin [Aspirin BABY CHEW TAB] 81 mg PO QDAY #30 tab.chew 06/16/17 Unknown Rx Carvedilol [Coreg] 3.125 mg PO BID #60 tablet 06/16/17 Unknown Rx Furosemide [Lasix TAB] 40 mg PO QDAY #30 tablet 06/16/17 Unknown Rx Insulin Detemir [Levemir] 20 units SUB-Q QAMDIAB #30 units 06/16/17 Unknown Rx Lisinopril [Zestril TAB] 2.5 mg PO QDAY #30 tablet 06/16/17 Unknown Rx oxyCODONE /ACETAMINOPHEN [Percocet 1 tab PO Q6H PRN #20 tablet 06/16/17 Unknown Rx 5/325 mg] Active Meds: Active Medications Acetaminophen (Tylenol) 650 mg PO Q4H PRN PRN Reason: Pain MILD(1-3)/Fever >100.5/GONSALES Albuterol (Proventil) 2.5 mg IH Q4HRT PRN PRN Reason: Shortness Of Breath Albuterol/Ipratropium (Duoneb *Not For Prn Use*) 1 ampul IH TIDRT [facility] Last Admin: 06/20/17 13:14 Dose: 1 ampul Alprazolam (Xanax) 0.125 mg PO Q8H PRN PRN Reason: Anxiety Azithromycin (Zithromax) 500 mg PO QDAY [facility] Last Admin: 06/20/17 13:14 Dose: 500 mg Bisacodyl (Dulcolax) 10 mg [place] QDAY PRN PRN Reason: Constipation unrelieved by MOM Carvedilol (Coreg) 3.125 mg PO BID [facility] Last Admin: 06/20/17 13:17 Dose: 3.125 mg Dextrose (D50w (25gm) Syringe) 50 ml IV PRN PRN PRN Reason: Hypoglycemia Docusate Sodium (Colace) 100 mg PO BID [facility] Last Admin: 06/20/17 13:15 Dose: Not Given Enoxaparin Sodium (Lovenox) 40 mg SUB-Q QDAY [facility] Last Admin: 06/20/17 13:15 Dose: 40 mg Famotidine (Pepcid) 20 mg PO BID [facility] Last Admin: 06/20/17 13:15 Dose: 20 mg Furosemide (Lasix) 40 mg IV BID@0600,1800 [facility] Last Admin: 06/20/17 06:18 Dose: 40 mg Ceftriaxone Sodium 1 gm/ (Sodium Chloride) 20 mls @ 20 mls/10 min IV Q24H [facility] Last Admin: 06/19/17 22:43 Dose: 20 mls/10 min Insulin Aspart (Novolog) 0 units SUB-Q ACHS [facility] PRN Reason: Protocol Last Admin: 06/20/17 13:00 Dose: 4 units Insulin Aspart (Novolog) 2 units SUB-Q ACHS [facility] Last Admin: 06/20/17 13:00 Dose: 2 units Insulin Detemir (Levemir) 25 units SUB-Q QAMDIAB [facility] Last Admin: 06/20/17 08:00 Dose: Not Given Lisinopril (Zestril) 2.5 mg PO QDAY [facility] Last Admin: 06/20/17 13:19 Dose: Not Given Magnesium Hydroxide (Milk Of Magnesia) 30 ml PO Q4H PRN PRN Reason: Constipation Morphine Sulfate (Morphine) 2 mg IV Q4H PRN PRN Reason: Pain, Moderate (4-6) Naloxone HCl (Narcan 0.4 Mg/1 Ml) 0.1 mg IV Q2MIN PRN PRN Reason: Res Rate </= 8 or 02 SAT < 92% Nitroglycerin (Nitrostat) 0.4 mg SL .Q5MIN PRN PRN Reason: Chest Pain Ondansetron HCl (Zofran) 4 mg IV Q8H PRN PRN Reason: N/V unrelieved by Reglan Oxycodone/Acetaminophen (Percocet 5/325) 1 tab PO Q6H PRN PRN Reason: Pain, Moderate (4-6) Potassium Chloride (K-Dur) 40 meq PO BID [facility] Last Admin: 06/20/17 13:17 Dose: 40 meq Zolpidem Tartrate (Ambien) 5 mg PO QHS PRN PRN Reason: Insomnia Last Admin: 06/20/17 00:07 Dose: 5 mg Review of Systems Constitutional: no weight loss, no weight gain, no fever, no chills, no sweats Ears, nose, mouth and throat: no ear pain, no nose pain, no sinus pressure, no sinus pain Cardiovascular: orthopnea, edema, shortness of breath, dyspnea on exertion, paroxysmal nocturnal dyspnea, leg edema, no chest pain, no palpitations, no rapid/irregular heart beat, no syncope, no lightheadedness Respiratory: shortness of breath, dyspnea on exertion, no cough, no congestion, no wheezing, no pain on inspiration Gastrointestinal: no abdominal pain, no nausea, no vomiting, no diarrhea, no constipation, no change in bowel habits Genitourinary Male: no dysuria, no hematuria, no flank pain, no discharge, no urinary frequency, no urinary hesitancy Musculoskeletal: no neck stiffness, no neck pain Integumentary: no rash, no pruritis, no redness, no sores, no wounds Neurological: no head injury Psychiatric: no anxiety Endocrine: no cold intolerance, no heat intolerance Hematologic/Lymphatic: no easy bruising, no easy bleeding, no lymphadenopathy Allergic/Immunologic: no urticaria, no wheezing, no persistent infections Physical Examination Vital Signs Temp Pulse Resp BP Pulse Ox 98.7 F 119 H 18 143/95 97 06/17/17 14:52 06/17/17 14:52 06/17/17 14:52 06/17/17 14:52 06/17/17 14:52 General appearance: no acute distress HEENT: Positive: PERRL, Normocephaly, Mucus Membranes Moist Neck: Positive: neck supple, trachea midline Cardiac: Positive: Reg Rate and Rhythm, S1/S2 Lungs: Positive: Decreased Breath Sounds, Oxygen Neuro: Positive: Grossly Intact Abdomen: Positive: Soft. Negative: Tender Skin: Positive: Clear. Negative: Rash, Wound Musculoskeletal: No Pain, Normal Range of Motion Extremities: Present: +1 Edema (BLE) Results 06/20/17 06:05 06/20/17 06:05 Cardiac Enzymes 06/20/17 Range/Units 06:05 AST 218 H (5-40) units/L Coagulation 06/20/17 Range/Units 06:05 PT 11.9 L (12.2-14.9) Sec. INR 0.84 L (0.87-1.13) CBC 06/20/17 Range/Units 06:05 WBC 6.8 (4.5-11.0) K/mm3 RBC 3.40 L (3.65-5.03) M/mm3 Hgb 9.0 L (11.8-15.2) gm/dl Hct 27.6 L (35.5-45.6) % Plt Count 194 (140-440) K/mm3 Lymph # 2.6 (1.2-5.4) K/mm3 [place] # 0.6 (0.0-0.8) K/mm3 Eos # 0.1 (0.0-0.4) K/mm3 Baso # 0.0 (0.0-0.1) K/mm3 Comprehensive Metabolic Panel 06/17/17 06/20/17 Range/Units 15:05 06:05 Sodium 138 (137-145) mmol/L Potassium 4.7 D (3.6-5.0) mmol/L Chloride 96.7 L (98-107) mmol/L Carbon Dioxide 29 (22-30) mmol/L BUN 7 L (9-20) mg/dL Creatinine 0.7 L D 0.5 L (0.8-1.5) mg/dL Glucose 91 (75-100) mg/dL Calcium 8.8 (8.4-10.2) mg/dL AST 218 H (5-40) units/L ALT 215 H (7-56) units/L Alkaline Phosphatase 203 H (35-129) units/L Total Protein 6.4 (6.3-8.2) g/dL Albumin 3.3 L (3.9-5) g/dL - Imaging and Cardiology Echo: report reviewed (06/13/2017: EF 25-30%, grade 3 LV diastolic dysfunction, LA dilated, mild AR, severe MR, mild to mod TR, RVSP 40mmHg, large bilateral pleural effusions. ) EKG: report reviewed, image reviewed EKG interpretations - Telemetry EKG Rhythm: Sinus Rhythm - EKG Sinus rhythms and dysrhythmias: sinus rhythm Chamber hypertrophy or enlargement: left ventricular hypertro Repolarization changes or abnormalities: nonspecific abnormality, ST segment, and/or T wave Assessment and Plan Assessment: Acute combined systolic and diastolic heart failure NICMP Sinus tachycardia ? PNA Pleural effusion - s/p thoracentesis this AM HTN DM Transaminitis Anemia Severe MR / mild to mod TR H/o pancreatitis H/o ETOH abuse Plan: Agree current cardiac regimen. Titrate coreg as tolerated. No current indication for repeat echo or ischemic evaluation at this time given recent studies. Assessment and plan reviewed with pt at bedside. The patient has been seen in conjunction with Dr. Rob who agrees with the assessment and plan of care.
[2017-06-20] MEDS: cefTRIAXone 1 GM in NACL 0.9% 20 ML IV SCH (21:09)
--- NOTE | 2017-06-21 00:08 | Consultation ---
PULMONARY CONSULTATION CONSULTING PHYSICIAN: Dr. Weaver. REASON FOR CONSULTATION: Pleural effusion. CHIEF COMPLAINT AND HISTORY OF PRESENT ILLNESS: The patient is a 56-year-old male with past medical history significant for recent diagnosis of congestive heart failure. History of alcohol abuse, history of pancreatitis, came into the Emergency Room complaining of intermittent chest pains and shortness of breath as well as fleeting bilateral lower extremity edema. He denied any gross or streaky hemoptysis. He denied any real fevers or chills. He said that he just felt bad all over. He had been discovering new diagnosis of late and wanted to get it checked out. He was evaluated in the Emergency Room, felt to have an acute exacerbation of CHF. He was found to also have bilateral pleural effusions. He was admitted also for an acute coronary syndrome workup. We are asked to assist with management of the pleural effusions. When I stopped by to see him, he was resting in bed, actually sitting on the side of bed, eating his lunch. He had just come back from a thoracentesis. He denied any pleuritic chest pain. He denied any nausea, vomiting, or overt aspiration prior to coming to the hospital. Now in terms of tobacco use/abuse history, he has a 10+ pack year tobacco smoking history, tells me he stopped smoking about 3 weeks ago. This really is as much of the history of presentation as I have. PAST MEDICAL HISTORY: Hypertension, diabetes, history of congestive heart failure, history of alcohol abuse and history of pancreatitis. PAST SURGICAL HISTORY: Denies. MEDICATIONS: He was on at the time I stopped by to see him were reviewed, pertinent medications include the following: DuoNeb treatments nebulized t.i.d., p.r.n. Xanax, Zithromax 500 mg p.o. daily, Coreg 3.125 mg p.o. b.i.d., Rocephin 1 gram IV daily, docusate sodium 100 mg p.o. b.i.d., Pepcid 20 mg p.o. b.i.d., Lasix 40 mg IV b.i.d., insulin via sliding scale, Levemir insulin 25 units subq q. a.m., Zestril 2.5 mg p.o. daily, p.r.n. morphine and p.r.n. Zofran. ALLERGIES: No known drug allergies. DIET: Thin gentleman. He states that he has just been losing weight, unable to gain any weight. FAMILY AND SOCIAL HISTORY: Lives in the community. History of alcohol abuse, most of his life. He quit about a month ago. He also quit cigarette smoking then. Denies illicit drug use or abuse. Family history, otherwise noncontributory. REVIEW OF SYSTEMS: No loss of consciousness. No new onset seizures. No new onset focal weakness. He denies a history of delirium tremens or alcohol withdrawal symptoms. Denies hematochezia or melena. Denies hematemesis. Denies any history of an acute GI bleed. Complete 13-system review of systems obtained. Pertinent positives and/or negatives as in body of history above, otherwise they are noncontributory. PHYSICAL EXAMINATION: VITAL SIGNS: At presentation, he was afebrile, temperature 98.7 degrees Fahrenheit, pulse 119, respiratory rate 18, blood pressure 143/95, oxygen sats were 97%, inspired oxygen concentration at that time was not recorded. He is currently on room air. GENERAL: Thin, middle-aged looking male, talking to me in full sentences without overt respiratory distress. HEENT: Normocephalic, atraumatic. HEAD, EYES, EARS, NOSE AND THROAT: He is anicteric. No conjunctival erythema. Oropharynx is a Mallampati #2. No gross jugular venous distention. No thyromegaly. Oropharynx is moist. Grossly, no palpable lymph nodes in the supraclavicular or submandibular lymph node chains. LUNGS: Auscultation of both lung sanchze significant for diminished right lower lobe in particular air entry greater than left. Faint basilar crackles, no wheezing. HEART: Sounds 1 and 2 are heard. They were regular in rate and rhythm at the time of my evaluation. No rubs, no murmurs. ABDOMEN: Soft, flat. Bowel sounds are positive, nontender. EXTREMITIES: Without overt digital clubbing or cyanosis. He has trace to 1+ pedal edema over the shins, dorsalis pedis pulses are palpable bilaterally. NEUROLOGIC: Pupils are equal, round, about 4 mm, reactive to light. Extraocular muscle movements are active. He moves all 4 extremities spontaneously. The skin is of normal turgor. No rashes seen and no cellulitis. LABORATORY DATA: From my review are as follows: Admission white cell count 8500 with a hemoglobin of 9.2, hematocrit of 28.2, platelet count 159. No manual differential. D-dimer was upper at 284. Serum sodium was 135, potassium 4.1, chloride 97, bicarbonate 25, BUN 12, creatinine 0.7, glucose was 527, BNP was elevated at 4589. Troponins within normal limits. AST 173, ALT 185. Albumin is 3.4. INR 0.84. Blood cultures no growth to date times 48 hours. Chest x-ray was reviewed, the chest x-ray shows small bilateral pleural effusions and possible pseudotumor on the right lung in the right mid lung zones. A CT angio of the chest was also done. I am able to review that. He does have bilateral pleural effusions with fluid tracking into the major fissures. No gross filling defects consistent with pulmonary emboli. No overt mediastinal adenopathy that I can see. The lung windows essentially show ground glass opacifications in particular in the upper lobes with some element of a crazy paving pattern. No gross pneumothorax, no gross bony fracture. He does have compressive atelectasis in particular to the left lower lobe. There is some motion artifact in that place that confounds interpretation a little bit, and he appears to have some consolidation, some air bronchograms as well as pleural based cyst in the left lower lobe region. ASSESSMENT AND PLAN: 1. Acute respiratory distress. 2. Acute exacerbation of congestive heart failure. 3. Bilateral small to moderate pleural effusions with pulmonary edema as evidenced by ground ground-glass opacification. 4. Anemia. 5. History of alcohol abuse. 6. History of pancreatitis. 7. Hypertension. 8. Diabetes, poorly controlled. PLAN: We agree with diuresis. Continue diuresis as tolerated, following electrolytes as well as BUN and creatinine. Thoracentesis has been done of the left pleural effusion, about 900 mL was drained. We will follow up on the studies including cytology as well as cultures. Oxygen will be given as necessary if O2 sats drop below 90%. We will continue bronchodilators and pulmonary hygiene per the respiratory therapist. He is appropriately on GI and DVT prophylaxis. Continued tobacco abstinence has been counselled. We should continue empiric community-acquired pneumonia therapy with a plan to deescalate shortly. I will go ahead and order a CRP level to better evaluate for possible infectious process and to help guide de-escalation of anti-infective therapy. Flu and pneumonia vaccination will be per protocol. Thank you very much for the consult. We will follow along. We will make further recommendations as the picture progresses/becomes clearer. JOB# [id number] ARUN/PEEWEE
[2017-06-21] MEDS: AMBIEN PO PRN (04:10)
[2017-06-21] MEDS: LASIX IV SCH ×2 (05:47→19:05)
[2017-06-21 06:20] LABS: Basophils % (Auto) 0.6 % (0.0-1.8); Eosinophils # (Auto) 0.1 K/mm3 (0.0-0.4); Hematocrit 24.5 % (35.5-45.6); Lymphocytes # (Auto) 1.9 K/mm3 (1.2-5.4); Lymphocytes % (Auto) 27.2 % (13.4-35.0); Mean Corpuscular HGB Conc 33 % (32-34); Mean Corpuscular Hemoglobin 26 pg (28-32); Mean Corpuscular Volume 80 fl (84-94); Monocytes # (Auto) 0.7 K/mm3 (0.0-0.8); Platelet Count 191 K/mm3 (140-440); Red Blood Count 3.08 M/mm3 (3.65-5.03); Red Cell Distribution Width 14.1 % (13.2-15.2)
[2017-06-21 06:35] LABS: Alanine Aminotransferase 137 units/L (7-56); BUN/Creatinine Ratio 17; Blood Urea Nitrogen 10 mg/dL (9-20); Calcium 8.7 mg/dL (8.4-10.2); Hemolysis Index 2
[2017-06-21] MEDS: DUONEB *Not for PRN Use IH SCH ×3 (07:29→20:16)
--- NOTE | 2017-06-21 08:22 | Progress Note ---
Subjective Date of service: 06/21/17 Principal diagnosis: chronic systolic heart failure, pneumonia Objective - Constitutional Vitals: Vital Signs - 12hr 06/21/17 06/21/17 06/21/17 05:37 07:30 07:35 Temperature 98.7 F Pulse Rate 109 H Pulse Rate [ 99 H 95 H Anterior Bilateral Throughout] Respiratory 18 18 Rate [Anterior Bilateral Throughout] Blood Pressure 99/62 O2 Sat by Pulse 97 Oximetry - Labs CBC & Chem 7: 06/21/17 05:20 06/21/17 05:20 Labs: Abnormal lab results 06/17/17 06/20/17 06/20/17 Range/Units 15:05 11:21 16:31 RBC (3.65-5.03) M/mm3 Hgb (11.8-15.2) gm/dl Hct (35.5-45.6) % MCV (84-94) fl MCH (28-32) pg [place] % (Auto) (0.0-7.3) % Sodium (137-145) mmol/L Creatinine 0.7 L D (0.8-1.5) mg/dL Glucose (75-100) mg/dL POC Glucose 241 H 308 H (70-105) AST (5-40) units/L ALT (7-56) units/L Alkaline Phosphatase (35-129) units/L Total Protein (6.3-8.2) g/dL Albumin (3.9-5) g/dL 06/20/17 06/21/17 06/21/17 Range/Units 20:58 05:20 05:20 RBC 3.08 L (3.65-5.03) M/mm3 Hgb 8.0 L (11.8-15.2) gm/dl Hct 24.5 L (35.5-45.6) % MCV 80 L (84-94) fl MCH 26 L (28-32) pg [place] % (Auto) 10.0 H (0.0-7.3) % Sodium 133 L (137-145) mmol/L Creatinine 0.6 L (0.8-1.5) mg/dL Glucose 198 H (75-100) mg/dL POC Glucose 302 H (70-105) AST 52 H (5-40) units/L ALT 137 H (7-56) units/L Alkaline Phosphatase 155 H (35-129) units/L Total Protein 5.7 L (6.3-8.2) g/dL Albumin 3.0 L (3.9-5) g/dL 06/21/17 Range/Units 05:49 RBC (3.65-5.03) M/mm3 Hgb (11.8-15.2) gm/dl Hct (35.5-45.6) % MCV (84-94) fl MCH (28-32) pg [place] % (Auto) (0.0-7.3) % Sodium (137-145) mmol/L Creatinine (0.8-1.5) mg/dL Glucose (75-100) mg/dL POC Glucose 245 H (70-105) AST (5-40) units/L ALT (7-56) units/L Alkaline Phosphatase (35-129) units/L Total Protein (6.3-8.2) g/dL Albumin (3.9-5) g/dL
[2017-06-21] MEDS: NOVOLOG SUB-Q SCH ×6 (08:55→16:50)
[2017-06-21] MEDS: LEVEMIR SUB-Q SCH (08:56)
[2017-06-21] MEDS: COLACE PO SCH (09:16)
[2017-06-21] MEDS: COREG PO SCH (09:17)
[2017-06-21] MEDS: K-DUR PO SCH (09:18)
[2017-06-21] MEDS: LOVENOX SUB-Q SCH (09:18)
[2017-06-21] MEDS: PEPCID PO SCH (09:19)
[2017-06-21] MEDS: ZESTRIL PO SCH (09:19)
[2017-06-21] MEDS: ZITHROMAX PO SCH (09:20)
--- NOTE | 2017-06-21 10:53 | Progress Note ---
Assessment and Plan Assessment: Acute combined systolic and diastolic heart failure NICMP Sinus tachycardia ? PNA Pleural effusion - s/p thoracentesis this AM HTN DM Transaminitis Anemia Severe MR / mild to mod TR H/o pancreatitis H/o ETOH abuse Plan: Agree current cardiac regimen. Titrate coreg as tolerated. No current indication for repeat echo or ischemic evaluation at this time given recent studies. Possible d/c home in AM. Pt wishes to readdress LifeVest/AICD as OP in our office. Assessment and plan reviewed with pt at bedside. The patient has been seen in conjunction with Dr. Rob who agrees with the assessment and plan of care. Subjective Date of service: 06/21/17 Principal diagnosis: chronic systolic heart failure, pneumonia Interval history: pt sitting up at bedside, states he is feeling better today, SOB improving. Tele reviewed - pt with ST this AM. Objective Last Vital Signs Temp 99.4 F 06/21/17 08:10 Pulse 114 H 06/21/17 10:34 Resp 20 06/21/17 10:34 BP 119/78 06/21/17 09:19 Pulse Ox 95 06/21/17 10:34 - Physical Examination General: No Apparent Distress HEENT: Positive: PERRL, Normocephaly, Mucus Membranes Moist Neck: Positive: neck supple, trachea midline Cardiac: Positive: S1/S2, Tachycardia Lungs: Positive: Decreased Breath Sounds Neuro: Positive: Grossly Intact Abdomen: Positive: Soft. Negative: Tender Skin: Positive: Clear. Negative: Rash, Wound Musculoskeletal: No Pain, Normal Range of Motion Extremities: Present: +1 Edema (BLE) - Labs and Meds Cardiac Enzymes 06/21/17 Range/Units 05:20 AST 52 H (5-40) units/L CBC 06/21/17 Range/Units 05:20 WBC 7.0 (4.5-11.0) K/mm3 RBC 3.08 L (3.65-5.03) M/mm3 Hgb 8.0 L (11.8-15.2) gm/dl Hct 24.5 L (35.5-45.6) % Plt Count 191 (140-440) K/mm3 Lymph # 1.9 (1.2-5.4) K/mm3 [place] # 0.7 (0.0-0.8) K/mm3 Eos # 0.1 (0.0-0.4) K/mm3 Baso # 0.0 (0.0-0.1) K/mm3 Comprehensive Metabolic Panel 06/21/17 Range/Units 05:20 Sodium 133 L (137-145) mmol/L Potassium 4.4 (3.6-5.0) mmol/L Chloride 98.0 (98-107) mmol/L Carbon Dioxide 29 (22-30) mmol/L BUN 10 (9-20) mg/dL Creatinine 0.6 L (0.8-1.5) mg/dL Glucose 198 H (75-100) mg/dL Calcium 8.7 (8.4-10.2) mg/dL AST 52 H (5-40) units/L ALT 137 H (7-56) units/L Alkaline Phosphatase 155 H (35-129) units/L Total Protein 5.7 L (6.3-8.2) g/dL Albumin 3.0 L (3.9-5) g/dL - Imaging and Cardiology EKG: report reviewed, image reviewed Echo: report reviewed (06/13/2017: EF 25-30%, grade 3 LV diastolic dysfunction, LA dilated, mild AR, severe MR, mild to mod TR, RVSP 40mmHg, large bilateral pleural effusions. ) - EKG Sinus rhythms and dysrhythmias: sinus rhythm Chamber hypertrophy or enlargement: left ventricular hypertro Repolarization changes or abnormalities: nonspecific abnormality, ST segment, and/or T wave
[2017-06-21 16:28] VITALS: BP 109/76
--- NOTE | 2017-06-21 17:41 | Discharge Summary ---
Providers - Providers Date of Admission: 06/17/17 23:13 Date of discharge: 06/21/17 Attending physician: JOSE ROBERTO JORDAN 06/19/17 19:21 Consult to Physician [CONS] Routine Consulting Provider: MICHAEL SLATER Reason For Exam: systolic heart failure Place consult to:: JUAN R Angelo Notified:: JUAN R Phone number called:: IN HOUSE Was contact made?: Yes If yes, spoke with:: JUAN R Time called:: 09:55 06/20/17 08:19 Consult to Physician [CONS] Routine Consulting Provider: ESTELITA CHAPMAN Reason For Exam: PLEURAL EFFUSION Place consult to:: Notified:: OFFICE Phone number called:: [phone] Was contact made?: Yes If yes, spoke with:: JERRI Time called:: 09:43 Primary care physician: FISHER TRAP Hospitalization Reason for admission: combined acute systolic and diastolic heart failure, pneumonia Condition: Serious Pertinent studies: Chest x-ray showed pneumonia CT scan of the chest showed bilateral pleural effusion with the left more than right, cardiomegaly, dilated pancreatic duct, chronic bronchitis. . Procedures: Thoracocentesis on the left lung with drainage of 900 mL of fluid. Cytology report was unavailable to documentation. Culture and Gram stain were negative for any organism Hospital course: 56-year-old male male history of recent diagnosis of heart failure history of EtOH and tobacco use presented for evaluation of intermittent chest pain and shortness of breath. Come in via ambulate. Also c/o edema cough orthopnea and PND. Denies any fever, lexican 06/15/17 showed EF of 27% with valvular heart dz. Also has hx pancreatitis and DM. On admission patient was placed on strict inputs and output charts, daily weights, IV Rocephin and ezythromycin. Cardiology consult was obtained. Patient was placed on aspirin. Beta blockers and lisinopril. CT scan of the chest showed no pulmonary embolism. However had evidence of bilateral pleural effusion with a left more than the right. There is radiology consult obtained for patient pleural effusion. 900ml of fluid drained from from the left lung. CT scan of the abdomen showed pancreatic duct dilatation as well as chronic pancreatitis. Pt was place on NPO but commence oral feeding which he tolerated after 2 days of NPO. Was place on SSI for his DM . Had A1c of 15.7 % . Has a history of alcohol abuse. Was advised to quit drinking. Patient continues to be stable. He has been discharged today to follow up with primary care Physician, recycling specialist, and cost recovery technician in 3, 7 and 14 days respectively. Disposition: - TO HOME OR SELFCARE Time spent for discharge: 35 min Core Measure Documentation - Palliative Care Palliative Care/ Comfort Measures: Not Applicable - Core Measures Any of the following diagnoses?: heart failure - Heart Failure Discharge Requirements LINDA/ARB for LVSD if EF <40%: Yes Beta kali at discharge: Yes Exam - Physical Exam Narrative exam: Constitutional: Well-nourished well-developed. In no distress Head: Normocephalic atraumatic Eyes: Pupils are equal round and reactive to light Nose: No enlarged turbinates, no septal deviation. Mouth: Moist mucous membranes. Neck: Supple no thyromegaly. No bruit. No JVD Heart: Regular rate and rhythm, S1-S2 with S3. No rubs murmurs or gallop Lungs: Clear to auscultation bilaterally with few rales Abdomen: Soft, nontender. Bowel sound are present. Extremities: No edema no cyanosis and no clubbing. Neuro: Alert oriented Oriented x3. No focal sensory or motor deficit. Skin: No rashes no hyperemic spots Psychiatry: Euthymic. Calm. - Constitutional Vitals: Temp Pulse Resp BP Pulse Ox 98.1 F 111 H 16 109/76 100 06/21/17 15:39 06/21/17 15:39 06/21/17 15:39 06/21/17 15:39 06/21/17 15:39 Plan Activity: advance as tolerated, fall precautions Weight Bearing Status: Non-Weight Bearing Diet: low cholesterol, low salt, diabetic Follow up with: PRIMARY CARE, [Primary Care Provider] - 3-5 Days BJ MAXWELL MD [Staff Physician] - 7 Days Prescriptions: ALBUTEROL NEB's [Proventil 0.083% NEBS] 2.5 mg IH Q4HRT PRN #100 nebu PRN Reason: Shortness Of Breath ALPRAZolam [Xanax TAB] 0.125 mg PO Q8H PRN #24 tablet PRN Reason: Anxiety Aspirin [Aspirin BABY CHEW TAB] 81 mg PO QDAY #30 tab.chew Azithromycin [Zithromax TAB] 500 mg PO QDAY #5 tablet Carvedilol [Coreg] 3.125 mg PO BID #60 tablet Famotidine [Pepcid] 20 mg PO QDAC #30 tablet Furosemide [Lasix TAB] 40 mg PO QDAY #30 tablet Insulin Detemir [Levemir] 20 units SUB-Q QAMDIAB #30 units Insulin Regular, Human [Novolin R] 4 units IJ AC #1 vial Lancets [Lancets Thin] 1 each AC #100 each Lancets/Blood Glucose Strips [Fora [id number] Strp-Lnct] 1 each SC ACHS # 100 combo..pkg Lisinopril [Zestril TAB] 2.5 mg PO QDAY #30 tablet oxyCODONE /ACETAMINOPHEN [Percocet 5/325 mg] 1 tab PO Q6H PRN #20 tablet PRN Reason: Pain , Severe (7-10) Potassium Chloride [K-Dur] 20 meq PO QDAY #30 tablet
--- NOTE | 2017-06-21 18:06 | Progress Note ---
Assessment and Plan Pleural effusion - s/p thoracentesis this AM Acute combined systolic and diastolic heart failure NICMP Sinus tachycardia HTN DM Transaminitis Anemia Severe MR / mild to mod TR H/o pancreatitis H/o ETOH abuse Subjective Date of service: 06/21/17 Principal diagnosis: chronic systolic heart failure, pneumonia Objective - Exam Narrative Exam: VITAL SIGNS: Reviewed. GENERAL: The patient appeared well nourished and normally developed. Vital signs as documented. HEAD: No signs of head trauma. EYES: Pupils are equal. Extraocular motions intact. EARS: Hearing grossly intact. MOUTH: Oropharynx is normal. NECK: No adenopathy, no JVD. CHEST: Chest with clear breath sounds bilaterally. No wheezes, rales, or rhonchi. CARDIAC: Tachycardia S1 and S2, without murmurs, gallops, or rubs. VASCULAR: Trace bilateral [place]. Edema. Peripheral pulses normal and equal in all extremities. ABDOMEN: Soft, without detectable tenderness. No sign of distention. No rebound or guarding, and no masses palpated. Bowel Sounds normal. MUSCULOSKELETAL: Good range of motion of all major joints. Extremities without clubbing, cyanosis. Trace bilateral Pitting edema. NEUROLOGIC EXAM: Alert and oriented x 3. No focal sensory or strength deficits. Speech normal. Follows commands. PSYCHIATRIC: Mood normal. SKIN: No rash or lesions. Vital Signs - 12hr 06/21/17 06/21/17 06/21/17 07:30 07:35 08:10 Temperature 99.4 F Pulse Rate 119 H Pulse Rate [ 99 H 95 H Anterior Bilateral Throughout] Pulse Rate [ Left Radial] Respiratory 16 Rate Respiratory 18 18 Rate [Anterior Bilateral Throughout] Blood Pressure 116/78 O2 Sat by Pulse 95 Oximetry 06/21/17 06/21/17 06/21/17 09:17 09:19 10:34 Temperature Pulse Rate 114 H Pulse Rate [ Anterior Bilateral Throughout] Pulse Rate [ 114 H Left Radial] Respiratory 20 Rate Respiratory Rate [Anterior Bilateral Throughout] Blood Pressure 119/78 119/78 O2 Sat by Pulse 95 Oximetry 06/21/17 06/21/17 06/21/17 13:08 13:34 15:39 Temperature 98.1 F Pulse Rate 111 H Pulse Rate [ 92 H 95 H Anterior Bilateral Throughout] Pulse Rate [ Left Radial] Respiratory 16 Rate Respiratory 18 18 Rate [Anterior Bilateral Throughout] Blood Pressure 109/76 O2 Sat by Pulse 100 Oximetry CBC and BMP: 06/21/17 05:20 06/21/17 05:20 ABG, PT/INR, D-dimer: PT/INR, D-dimer PT 11.9 Sec. (12.2-14.9) L 06/20/17 06:05 INR 0.84 (0.87-1.13) L 06/20/17 06:05 D-Dimer 284.17 ng/mlDDU (0-234) H 06/17/17 16:18 Abnormal lab findings: Abnormal Labs 06/17/17 06/17/17 06/17/17 15:05 15:05 15:05 RBC 3.52 L Hgb 9.2 L Hct 28.2 L MCV 80 L MCH 26 L MCHC Lymph % (Auto) [place] % (Auto) 9.2 H [place] # Seg Neutrophils % 73.5 H PT INR D-Dimer Sodium 135 L Potassium Chloride 97.0 L BUN Creatinine 0.7 L D Glucose 527 H* POC Glucose Hemoglobin A1c Phosphorus AST ALT Alkaline Phosphatase NT-Pro-B Natriuret Pep 4589 H Total Protein Albumin LDL Cholesterol Direct HDL Cholesterol 06/17/17 06/17/17 06/17/17 16:18 22:53 23:45 RBC Hgb Hct MCV MCH MCHC Lymph % (Auto) [place] % (Auto) [place] # Seg Neutrophils % PT INR D-Dimer 284.17 H Sodium Potassium Chloride BUN Creatinine Glucose POC Glucose Hemoglobin A1c 15.7 H Phosphorus AST 173 H ALT 185 H Alkaline Phosphatase 189 H NT-Pro-B Natriuret Pep Total Protein 6.0 L Albumin 3.4 L LDL Cholesterol Direct HDL Cholesterol 06/17/17 06/18/17 06/18/17 23:45 02:52 06:34 RBC Hgb Hct MCV MCH MCHC Lymph % (Auto) [place] % (Auto) [place] # Seg Neutrophils % PT INR D-Dimer Sodium Potassium Chloride BUN Creatinine Glucose POC Glucose 468 H > 500 H Hemoglobin A1c Phosphorus AST ALT Alkaline Phosphatase NT-Pro-B Natriuret Pep Total Protein Albumin LDL Cholesterol Direct 42 L HDL Cholesterol 93 H 06/18/1718 06/18/17 08:18 08:37 08:37 RBC Hgb 9.6 L Hct 30.9 L MCV 82 L MCH 26 L MCHC 31 L Lymph % (Auto) [place] % (Auto) 10.1 H [place] # Seg Neutrophils % PT INR D-Dimer Sodium 135 L Potassium 3.5 L Chloride 93.2 L BUN Creatinine 0.5 L Glucose 389 H POC Glucose 427 H Hemoglobin A1c Phosphorus 2.20 L AST 137 H ALT 173 H Alkaline Phosphatase 178 H NT-Pro-B Natriuret Pep Total Protein Albumin 2.9 L LDL Cholesterol Direct HDL Cholesterol 06/18/17 06/18/17 06/18/17 12:38 17:25 22:46 RBC Hgb Hct MCV MCH MCHC Lymph % (Auto) [place] % (Auto) [place] # Seg Neutrophils % PT INR D-Dimer Sodium Potassium Chloride BUN Creatinine Glucose POC Glucose 383 H 406 H > 500 H Hemoglobin A1c Phosphorus AST ALT Alkaline Phosphatase NT-Pro-B Natriuret Pep Total Protein Albumin LDL Cholesterol Direct HDL Cholesterol 06/19/17 06/19/17 06/19/17 01:07 02:08 05:31 RBC 3.36 L Hgb 8.7 L Hct 27.0 L MCV 80 L MCH 26 L MCHC Lymph % (Auto) [place] % (Auto) 10.4 H [place] # 0.9 H Seg Neutrophils % PT INR D-Dimer Sodium Potassium Chloride BUN Creatinine Glucose 389 H POC Glucose 434 H Hemoglobin A1c Phosphorus AST ALT Alkaline Phosphatase NT-Pro-B Natriuret Pep Total Protein Albumin LDL Cholesterol Direct HDL Cholesterol 06/19/17 06/19/17 06/19/17 05:31 06:36 11:14 RBC Hgb Hct MCV MCH MCHC Lymph % (Auto) [place] % (Auto) [place] # Seg Neutrophils % PT INR D-Dimer Sodium 135 L Potassium Chloride 94.2 L BUN 6 L Creatinine 0.5 L Glucose 240 H POC Glucose 361 H 438 H Hemoglobin A1c Phosphorus AST 86 H ALT 144 H Alkaline Phosphatase 159 H NT-Pro-B Natriuret Pep Total Protein 6.2 L Albumin 3.0 L LDL Cholesterol Direct HDL Cholesterol 06/19/17 06/19/17 06/20/17 16:29 22:53 06:05 RBC 3.40 L Hgb 9.0 L Hct 27.6 L MCV 81 L MCH 26 L MCHC Lymph % (Auto) 38.9 H [place] % (Auto) 9.3 H [place] # Seg Neutrophils % PT INR D-Dimer Sodium Potassium Chloride BUN Creatinine Glucose POC Glucose 107 H 270 H Hemoglobin A1c Phosphorus AST ALT Alkaline Phosphatase NT-Pro-B Natriuret Pep Total Protein Albumin LDL Cholesterol Direct HDL Cholesterol 06/20/17 06/20/17 06/20/17 06:05 06:05 11:21 RBC Hgb Hct MCV MCH MCHC Lymph % (Auto) [place] % (Auto) [place] # Seg Neutrophils % PT 11.9 L INR 0.84 L D-Dimer Sodium Potassium Chloride 96.7 L BUN 7 L Creatinine 0.5 L Glucose POC Glucose 241 H Hemoglobin A1c Phosphorus AST 218 H ALT 215 H Alkaline Phosphatase 203 H NT-Pro-B Natriuret Pep Total Protein Albumin 3.3 L LDL Cholesterol Direct HDL Cholesterol 06/20/17 06/20/17 06/21/17 16:31 20:58 05:20 RBC 3.08 L Hgb 8.0 L Hct 24.5 L MCV 80 L MCH 26 L MCHC Lymph % (Auto) [place] % (Auto) 10.0 H [place] # Seg Neutrophils % PT INR D-Dimer Sodium Potassium Chloride BUN Creatinine Glucose POC Glucose 308 H 302 H Hemoglobin A1c Phosphorus AST ALT Alkaline Phosphatase NT-Pro-B Natriuret Pep Total Protein Albumin LDL Cholesterol Direct HDL Cholesterol 06/21/17 06/21/17 06/21/17 05:20 05:49 11:04 RBC Hgb Hct MCV MCH MCHC Lymph % (Auto) [place] % (Auto) [place] # Seg Neutrophils % PT INR D-Dimer Sodium 133 L Potassium Chloride BUN Creatinine 0.6 L Glucose 198 H POC Glucose 245 H 364 H Hemoglobin A1c Phosphorus AST 52 H ALT 137 H Alkaline Phosphatase 155 H NT-Pro-B Natriuret Pep Total Protein 5.7 L Albumin 3.0 L LDL Cholesterol Direct HDL Cholesterol 06/21/17 06/21/17 16:11 17:25 RBC Hgb Hct MCV MCH MCHC Lymph % (Auto) [place] % (Auto) [place] # Seg Neutrophils % PT INR D-Dimer Sodium Potassium Chloride BUN Creatinine Glucose POC Glucose 63 L 143 H Hemoglobin A1c Phosphorus AST ALT Alkaline Phosphatase NT-Pro-B Natriuret Pep Total Protein Albumin LDL Cholesterol Direct HDL Cholesterol
[2017-06-23 10:48] LABS: LDH,Body Fluid 123; Total Protein,Body Fluid < 3.0 (15.0-45.0)
== END 2017-06-21 20:41 | disposition home or self-care (01) | DRG 291 ==
LOC: ED 14:47 → 3A 23:13
PROVIDERS: ADMIT Internal Medicine Geriatric Medicine; ATTEND Family Medicine
PROC: 0W9B3ZZ Drainage of Left Pleural Cavity, Percutaneous Approach (ICD-10-PCS; principal; 2017-06-20)
DX: I11.0 Hypertensive heart disease with heart failure (principal); J18.9 Pneumonia, unspecified organism; J96.21 Acute and chronic respiratory failure with hypoxia; K86.1 Other chronic pancreatitis; J90 Pleural effusion, not elsewhere classified; I50.43 Acute on chronic combined systolic (congestive) and diastolic (congestive) heart failure; E11.65 Type 2 diabetes mellitus with hyperglycemia; D64.9 Anemia, unspecified; I08.1 Rheumatic disorders of both mitral and tricuspid valves; K82.8 Other specified diseases of gallbladder; I42.9 Cardiomyopathy, unspecified; Z79.4 Long term (current) use of insulin; Z79.899 Other long term (current) drug therapy; Z79.82 Long term (current) use of aspirin; Z90.49 Acquired absence of other specified parts of digestive tract; Z87.891 Personal history of nicotine dependence; Z82.49 Family history of ischemic heart disease and other diseases of the circulatory system
CPT/HCPCS: 32555; 36415; 71045; 71046; 71275; 74176; 80048; 80053; 80061; 80074; 82040; 82947; 82962; 83036; 83605; 83690; 83735; 83880; 84100; 84160; 84484; 85025; 85379; 85610; 87040; 87116; 88112; 88305; 88342; 89051; 93005; 93010; 94640; 96365; 96375; 99406; J0456; J0696; J1650; J1815; J1818; J1940; J2270; J7030; J7050; Q9967